=== PATIENT | male | born 1970 | race Caucasian/White ===

== ENCOUNTER 2017-05-06 20:13 | Emergency (ER) | payer MEDICARE ==
[2017-05-06] MEDS ORDERED: LORazepam INJ* 2 MG/ML 1 ML VIAL IV PUSH ONE ×2 (20:35→21:49)
[2017-05-06] MEDS ORDERED: NS 0.9% 1000 ML* 1,000 ML IV ONE (20:35)
[2017-05-06] MEDS ORDERED: diPHENhydraMINE IV* 50 MG/ML 1 ml VIAL (BENADRYL) IV ONE ×2 (21:15→21:49)
[2017-05-06] MEDS ORDERED: diPHENhydraMINE IV* 50 MG/ML 1 ml VIAL (BENADRYL) ONE (21:15)
[2017-05-06] MEDS ORDERED: HYDROmorphone INJ* 2 MG/ML CARPUJECT SYRINGE IV SLOW PU ONE (22:39)
[2017-05-06 23:07] VITALS: BP 132/81
--- NOTE | 2017-05-07 05:27 | ED ---
Jay Benton Tecjoon, scribed for Otf Amaya MD on 05/06/17 at 2040 . Complex/Multi-Sys Presentation - HPI Summary HPI Summary: This patient is a 46 year old male presenting to [facility] accompanied by family with a chief complaint of worsening Parkinsons symptoms since 3 days ago. At time of exam, patients extremities shake uncontrollably. Patient states that at the worst, his muscle stiffness can be as bad as a paralysis. The pain is rated 7/10 in severity. Symptoms aggravated by nothing. Symptoms alleviated by nothing. Patient denies coughing , congestion, rhinorrhea, urinary problems. Patient has a DBS. - History Of Current Complaint Chief Complaint: EDGeneral Hx Obtained From: Patient Onset/Duration: Gradual Onset, Lasting Days - 3, Still Present Timing: Constant, Intermittent, Lasting: Severity Currently: Moderate - 7/10 Aggravating Factor(s): Nothing Alleviating Factor(s): Nothing Associated Signs And Symptoms: Negative: Cough - Allergies/Home Medications Allergies/Adverse Reactions: Allergies Allergy/AdvReac Type Severity Reaction Status Date / Time No Known Allergies Allergy Verified 05/06/17 20:48 PMH/Surg Hx/FS Hx/Imm Hx Previously Healthy: Yes Endocrine/Hematology History: Denies: Hx Diabetes Cardiovascular History: Denies: Hx Hypertension, Hx Pacemaker/ICD History: Denies: Hx Renal Disease Sensory History: Denies: Hx Hearing Aid EENT History: Denies: Hx Deafness Psychiatric History: Reports: Hx Panic Disorder - ANXIETY ATTACKS PT HAS PARKINSONS - Surgical History Surgery Procedure, Year, and Place: APPENDIX AGE 13 Infectious Disease History: No Infectious Disease History: Denies: Traveled Outside the US in Last 30 Days - Family History Known Family History: Negative: Hypertension - Social History Lives: With Family Hx Substance Use: Yes Substance Use Type: Reports: Marijuana Hx Tobacco Use: Yes Smoking Status (MU): Former Smoker Review of Systems Negative: Fever ENT: Negative - nasal congestion Negative: Nasal Discharge Negative: Cough Genitourinary: Negative - "any urinary problems" Positive: Other - uncontrolled tremors in extremities All Other Systems Reviewed And Are Negative: Yes Physical Exam - Summary Physical Exam Summary: Appearance: Well appearing, no pain distress Skin: warm, dry, reflects adequate perfusion Head/face: normocephalic, flat faces Eyes: EOMI, BESS ENT: normal Neck: supple, non-tender Respiratory: CTA, breath sounds present Cardiovascular: RRR, pulses symmetrical Abdomen: non-tender, soft Bowel: present Musculoskeletal: uncontrolled tremors in extremities, worst at left arm Neuro: normal, sensory motor intact, A&Ox3 Triage Information Reviewed: Yes Vital Signs On Initial Exam: Initial Vitals Temp Pulse Resp BP Pulse Ox 98.3 F 103 16 132/100 100 05/06/17 20:23 05/06/17 20:23 05/06/17 20:23 05/06/17 20:23 05/06/17 20:23 Vital Signs Reviewed: Yes Diagnostics - Vital Signs Vital Signs Temp Pulse Resp BP Pulse Ox 05/06/17 20:23 98.3 F 103 16 132/100 100 - Laboratory Lab Statement: Any lab studies that have been ordered have been reviewed, and results considered in the medical decision making process. Re-Evaluation - Re-Evaluation First Eval Re-Evaluation Time: 21:50 Change: Improved Comment: Patient is improving, but there are still lingering tremors. Complex Multi-Symp Course/Dx Course Of Treatment: Pt with hx of Parkinson's without recent med changes. He has "flares" in his sx. He was hydrated here, tx with ativan and benadryl with relief. He was able to get up and walk about the ER. Patient was given a walker to assist with tremors and walking. He is due to have DBS placed in the coming weeks. - Diagnoses Provider Diagnoses: Parkinson's disease (tremor, stiffness, slow motion, unstable posture), Tremor , coarse Discharge - Discharge Plan Condition: Improved Disposition: HOME Patient Education Materials: Parkinson Disease (ED), Tremors (ED) Referrals: Sherron Orlando MD [Primary Care Provider] - Additional Instructions: Follow up with [facility] for your deep brain stimulator as discussed. Stay well hydrated and move about frequently. Benadryl may help. Return if worse, new symptoms or other concerns as discussed. Use walker provided when moving. The documentation as recorded by the Jay camejo Tecjoon accurately reflects the service I personally performed and the decisions made by me, Otf Amaya MD.
== END 2017-05-06 23:07 | disposition home or self-care (01) ==
LOC: ED 20:13
DX: G20 Parkinson's disease (principal); R25.1 Tremor, unspecified
CPT/HCPCS: 96374; 96375; 99283; J1170; J1200; J2060

== ENCOUNTER 2017-05-10 06:16 | Observation (INO) | payer MEDICARE ==
[2017-05-10] MEDS ORDERED: Nitroglycerin 2% OINT* 1 GM PAK TOPICAL ONE (06:40)
[2017-05-10 07:08] LABS: ABS Basophils 0 10^3/ul (0-0.2); ABS Eosinophils 0.4 10^3/ul (0-0.6); ABS Lymphocytes 1.9 10^3/ul (1.0-4.8); ABS Monocytes 0.6 10^3/ul (0-0.8); ABS Neutrophils 2.9 10^3/ul (1.5-7.7); ABS Nucleated RBC 0 10^3/ul; Hematocrit 46 % (42-52); Hemoglobin 15.5 g/dl (14.0-18.0); Mean Corpuscular HGB Conc 34 g/dl (31-36); Mean Corpuscular Hemoglobin 33 pg (27-31); Mean Corpuscular Volume 97 fL (80-94); Mean Platelet Volume 8 um3 (7.4-10.4); Nucleated Red Blood Cells % 0.1; Platelet Count 209 10^3/ul (150-450); Red Blood Count 4.78 10^6/ul (4.0-5.4); Red Cell Distribution Width 14 % (10.5-15); White Blood Count 5.8 10^3/ul (3.5-10.8)
[2017-05-10 07:20] LABS: EGFR Non-African American 92.8 (>60)
[2017-05-10] MEDS ORDERED: Morphine INJ* 4 MG/ML 1 ML CARPUJECT IV ONE ×2 (07:23→07:26)
[2017-05-10 07:40] LABS: INR 0.84 (0.77-1.02)
[2017-05-10] MEDS ORDERED: LORazepam INJ* 2 MG/ML 1 ML VIAL IV PUSH ONE (08:00)
[2017-05-10] MEDS ORDERED: LORazepam INJ* 2 MG/ML 1 ML VIAL ONE (08:02)
[2017-05-10] MEDS ORDERED: Iohexol 350* (CONTRAST) 500 ML MDV IV ONE (08:04)
--- NOTE | 2017-05-10 08:08 | RAD ---
INDICATION: Chest pain COMPARISON: Most raising comparison chest x-rays dated March 14, 2009 TECHNIQUE: Single AP portable view of the chest was obtained. FINDINGS: Image quality is compromised due to the relative inferiority of a portable chest x-ray. The heart and mediastinum exhibit normal size and contour. The lungs are grossly clear. There is no evidence of a large pleural effusion. Visualized bones are normal for the patient's age. IMPRESSION: No radiographic evidence for acute cardiopulmonary abnormality on this portable chest x-ray.
[2017-05-10] MEDS ORDERED: NS 0.9% 1000 ML* 1,000 ML IV ONE (08:19)
--- NOTE | 2017-05-10 08:46 | RAD ---
HISTORY: Chest pain COMPARISONS: None TECHNIQUE: Multiple contiguous axial CT scans of the chest were obtained after the administration of nonionic intravenous contrast, timed to the pulmonary arterial phase of contrast enhancement.. Coronal and sagittal multiplanar reformations are also submitted for review. FINDINGS: NECK AND THYROID: The lower neck and thyroid are unremarkable. CHEST WALL: There is no lower cervical, axillary, or supraclavicular lymphadenopathy by size criteria. HEART AND PERICARDIUM: The heart is unremarkable. AORTA AND PULMONARY VASCULATURE: There is no pulmonary arterial filling defect to suggest pulmonary embolism. There is no linear filling defect within the aorta to suggest aortic dissection. MEDIASTINUM: There is no mediastinal lymphadenopathy by size criteria. ROMAN: There is no hilar lymphadenopathy by size criteria. AIRWAY AND ESOPHAGUS: The airway is unremarkable, without endobronchial filling defect. The esophagus is grossly normal. LUNG PARENCHYMA: The lungs are clear. PLEURA: No pleural abnormalities are noted. UPPER ABDOMEN: The upper abdomen is unremarkable. BONES AND SOFT TISSUES: No bone or soft tissue abnormalities are noted. OTHER: None. IMPRESSION: NO PULMONARY ARTERIAL FILLING DEFECT TO SUGGEST PULMONARY EMBOLISM.
--- NOTE | 2017-05-10 11:40 | PN ---
"Progress Note - Progress Note Date of Service: 05/10/17 Note: This report was requested by: Nic Azar | Reference #: [id number] Others' Prescriptions Patient Name: Merritt Silver Date: 1970 Address: [address] [id number] Sex: Male Rx Written Rx Dispensed Drug Quantity Days Supply Prescriber Name 02/26/2017 03/06/2017 diazepam 5 mg tablet 90 30 Sherron Orlando MD 12/28/2016 12/29/2016 diazepam 5 mg tablet 90 30 Sherron Orlando MD Patient Name: Merritt Silver Date: 1970 Address: [address] [place] [id number] Sex: Male Rx Written Rx Dispensed Drug Quantity Days Supply Prescriber Name 07/26/2016 07/27/2016 diazepam 5 mg tablet 90 30 Sherron Orlando MD 05/16/2016 05/16/2016 clonazepam 1 mg tablet 60 30 Sherron Orlando MD"
--- NOTE | 2017-05-10 11:46 | CONSULT ---
Subjective Date of Service: 05/10/17 Interval History: The patient awoke in his usual state of health about 5 AM today, not unusual for him. He developed mid-sternal chest pain shortly after that, lasting 10-15 minutes. It then moved to his inter-scapular area where it remains. He never had anterior chest pain like this before, but has had the same inter-scapular pain for about a year. It is gradually getting worse. It typically starts in the evening and lasts all night. He "freezes" and cannot walk for about 12 hrs per day, but the other 12 hrs he can walk. He last saw Dr. Silver about 6 months ago. He is followed by a DBS specialist in [place]. Family History: Findings - unrmarkable. Social History: Findings - Lives with his mother who is his SDM. Quit smoking 2016. No alcohol abuse. Past Medical History: Findings - severe parkinson's disease Review of Systems - Measurements Intake and Output: Intake and Output Last 24 Hours 05/08/17 05/09/17 05/10/17 05/11/17 06:59 06:59 06:59 06:59 Weight 155 lb 155 lb - Review of Systems Constitutional Symptoms: Negative: Weight Gain, Weight Loss, Weakness, Fatigue, Fever, Night Sweats, Unexplained Falls, Other Dermatology: Positive: Normal HEENT: Positive: Normal Eyes: Positive: Normal Thyroid: Positive: Normal Pulmonary: Positive: Normal Cardiology: Positive: Chest Pain Gastroenterology: Positive: Normal Genital - Urinary: Positive: Normal Genitourinary - Male: Positive: Prostatism Musculoskeletal: Positive: Low Back Pain, Other - inter-scapular pain Endocrinology: Positive: Normal Neurology: Positive: Other - Parkinsons Psychiatry: Positive: Normal Allergic/Immunologic: Negative: Hx Anaphylaxis, Hx Angioedema, Hx Environmental, Hx Seasonal, Athsma, Hx HIV, Immunocompromise, Swollen Glands LymphNodes, Other Objective Vital Signs - 8 hr 05/10/17 05/10/17 05/10/17 06:19 06:26 06:46 Temperature 98.1 F Pulse Rate 80 81 74 Respiratory 18 16 16 Rate Blood Pressure 150/83 (mmHg) O2 Sat by Pulse 98 98 98 Oximetry 05/10/17 05/10/17 05/10/17 07:00 07:30 08:00 Temperature Pulse Rate 79 79 95 Respiratory 13 14 14 Rate Blood Pressure 118/83 125/53 128/85 (mmHg) O2 Sat by Pulse 96 97 97 Oximetry 05/10/17 05/10/17 08:03 09:00 Temperature Pulse Rate 87 Respiratory 20 11 Rate Blood Pressure 100/52 (mmHg) O2 Sat by Pulse 98 Oximetry Oxygen Devices in Use Now: None Appearance: Alert, partly up in bed. Neutral affect. Marked tremor/athetoid movements. Eyes: No Scleral Icterus Neck: NL Appearance and Movements; NL JVP, No Thyroid Enlargement, Masses Respiratory: Symmetrical Chest Expansion and Respiratory Effort, Clear to Auscultation, Clear to Percussion, - - mild sternal tenderness. Extremities: No Edema, No Clubbing, Cyanosis, - Skin: No Rash or Ulcers, No Nodules or Sclerosis, - Neurological: Alert and Oriented x 3, NL Sensation - marked tremor/athetoid movements all limbs and head. Result Diagrams: 05/10/17 06:26 05/10/17 06:26 Assessment/Plan - Billing Plan By Medical Problem: 1. Chest pain. Nuclear/chemical stress test ordered. Tele. 2. Parkinson's. I discussed the patient with Dr. Silver.
[2017-05-10] MEDS: oxyCODONE TAB* 5 MG TAB PO PRN ×3 (12:53→21:27)
[2017-05-10] MEDS ORDERED: Naproxen TAB* 250 MG PO PRN (15:16)
[2017-05-10] MEDS ORDERED: clonazePAM TAB(*) 0.5 MG PO PRN (15:16)
[2017-05-10] MEDS ORDERED: Regadenoson* 0.4 MG/5 ML SYRINGE ONE (16:28)
[2017-05-10] MEDS ORDERED: Aminophylline IV* 25 MG/ML 10 ML VIAL ONE (16:29)
[2017-05-10] MEDS: Carbidopa/Levodop 25/100 MG TAB(*) PO SCH (18:17)
--- NOTE | 2017-05-10 18:26 | ED ---
Eric Benton Angela, scribed for Yonis Strickland MD on 05/10/17 at 0730 . HPI Chest Pain - HPI Summary HPI Summary: This pt is a 46 y/o male presenting to [facility] via EMS c/o chest pain radiating to his back since approximately 04:00 today. Pt has hx of Parkinson's and has chronic pain. Pt has been in worsening pain since 4 days ago. His chest pain is described as sharp and heavy. Pt additionally reports nausea and dizziness. He denies vomiting, fever, SOB. Pt saw his PCP yesterday but was not given any pain medications. Pt's PCP is Dr. Orlando and his neurologist is Dr. Silver. Pt received 324 mg of aspirin, 1 nitroglycerin, and 4 mg of Zofran [employer]S RECYCLER. - History of Current Complaint Chief Complaint: EDChestPainROMI Hx Obtained From: Patient Onset/Duration: Started Hours Ago, Still Present Timing: Lasting Hours Current Severity: Severe Pain Intensity: 8 Pain Scale Used: 0-10 Numeric Chest Pain Location: Diffuse Chest Pain Radiates: Yes Chest Pain Radiates To:: Back Character: Heaviness, Sharp/Stabbing - sharp Aggravating Factor(s): Nothing Alleviating Factor(s): Nothing Associated Signs and Symptoms: Positive: Chest Pain, Dizziness, Nausea. Negative: Shortness of Breath, Fever, Vomiting - Allergy/Home Medications Allergies/Adverse Reactions: Allergies Allergy/AdvReac Type Severity Reaction Status Date / Time No Known Allergies Allergy Verified 05/06/17 20:48 Home Medications: Home Medications Amantadine HCl 100 mg PO BID 05/10/17 [History Confirmed 05/10/17] Carbidopa/Levodop 25/100 MG(*) [Sinemet 25/100 TAB(*)] 1.5 tab PO 0700,1000,1300 ,1600 05/10/17 [History Confirmed 05/10/17] Cholecalciferol TAB* [Vitamin D TAB*] 2,000 units PO DAILY 05/10/17 [History Confirmed 05/10/17] Diazepam TAB(*) [Valium TAB(*)] 5 mg PO TID PRN 05/10/17 [History Confirmed ] Naproxen TAB* [Naprosyn 250 mg TAB*] 500 mg PO BID PRN 05/10/17 [History Confirmed 05/10/17] Kbbzy-5-Kvbr Ethyl Esters (NF) [Lovaza (NF)] 2 cap PO BID 05/10/17 [History Confirmed 05/10/17] Sertraline* [Zoloft*] 50 mg PO DAILY 05/10/17 [History Confirmed 05/10/17] clonazePAM TAB(*) [KlonoPIN TAB(*)] 0.5 mg PO BID PRN 05/10/17 [History Confirmed 05/10/17] PMH/Surg Hx/FS Hx/Imm Hx Endocrine/Hematology History: Denies: Hx Diabetes Cardiovascular History: Denies: Hx Hypertension, Hx Pacemaker/ICD History: Denies: Hx Renal Disease Sensory History: Denies: Hx Deafness, Hx Hearing Aid Neurological History: Reports: Other Neuro Impairments/Disorders - Parkinson's disease Psychiatric History: Reports: Hx Panic Disorder - ANXIETY ATTACKS PT HAS PARKINSONS - Surgical History Surgery Procedure, Year, and Place: APPENDIX AGE 13 - Immunization History Date of Tetanus Vaccine: utd Date of Influenza Vaccine: none Infectious Disease History: No Infectious Disease History: Denies: Traveled Outside the US in Last 30 Days - Family History Known Family History: Negative: Hypertension - Social History Alcohol Use: Rare Hx Substance Use: Yes Substance Use Type: Reports: Marijuana Substance Use Comment - Amount & Last Used: daily Hx Tobacco Use: Yes Smoking Status (MU): Former Smoker Review of Systems Negative: Fever, Chills Positive: Chest Pain Negative: Shortness Of Breath Positive: Nausea. Negative: Vomiting Neurological: Other - POS: dizziness All Other Systems Reviewed And Are Negative: Yes Physical Exam - Summary Physical Exam Summary: VITAL SIGNS: Reviewed. GENERAL: Patient is a well-developed and nourished male. Patient is not in any acute respiratory distress. Pt has continuous involuntary tremors. HEAD AND FACE: No signs of trauma. No ecchymosis, hematomas or skull depressions. No sinus tenderness. EYES: PERRLA, EOMI x 2, No injected conjunctiva, no nystagmus. EARS: Hearing grossly intact. Ear canals and tympanic membranes are within normal limits. MOUTH: Oropharynx within normal limits. NECK: Supple, trachea is midline, no adenopathy, no JVD, no carotid bruit, no c- spine tenderness, neck with full ROM. CHEST: Symmetric, no tenderness at palpation LUNGS: Clear to auscultation bilaterally. No wheezing or crackles. CVS: Regular rate and rhythm, S1 and S2 present, no murmurs or gallops appreciated. ABDOMEN: Soft, non-tender. No signs of distention. No rebound no guarding, and no masses palpated. Bowel sounds are normal. EXTREMITIES: FROM in all major joints, no edema, no cyanosis or clubbing. NEURO: Alert and oriented x 3. Speech is normal and follows commands. Pt has continuous involuntary tremors and dyskinesia. SKIN: Dry and warm Triage Information Reviewed: Yes Vital Signs On Initial Exam: Initial Vitals Temp Pulse Resp BP Pulse Ox 98.1 F 80 18 150/83 98 05/10/17 06:19 05/10/17 06:19 05/10/17 06:19 05/10/17 06:19 05/10/17 06:19 Vital Signs Reviewed: Yes Diagnostics - Vital Signs Vital Signs Temp Pulse Resp BP Pulse Ox 05/10/17 06:19 98.1 F 80 18 150/83 98 - Laboratory Lab Results: Lab Results 05/10/17 05/10/17 Range/Units 06:26 06:26 WBC 5.8 (3.5-10.8) 10^3/ul RBC 4.78 (4.0-5.4) 10^6/ul Hgb 15.5 (14.0-18.0) g/dl Hct 46 (42-52) % MCV 97 H (80-94) fL MCH 33 H (27-31) pg MCHC 34 (31-36) g/dl RDW 14 (10.5-15) % Plt Count 209 (150-450) 10^3/ul MPV 8 (7.4-10.4) um3 Neut % (Auto) 49.0 (38-83) % Lymph % (Auto) 33.0 (25-47) % [place] % (Auto) 10.4 H (1-9) % Eos % (Auto) 7.0 H (0-6) % Baso % (Auto) 0.6 (0-2) % Absolute Neuts (auto) 2.9 (1.5-7.7) 10^3/ul Absolute Lymphs (auto) 1.9 (1.0-4.8) 10^3/ul Absolute Monos (auto) 0.6 (0-0.8) 10^3/ul Absolute Eos (auto) 0.4 (0-0.6) 10^3/ul Absolute Basos (auto) 0 (0-0.2) 10^3/ul Absolute Nucleated RBC 0 10^3/ul Nucleated RBC % 0.1 Sodium 139 (133-145) mmol/L Potassium 4.1 (3.5-5.0) mmol/L Chloride 104 (101-111) mmol/L Carbon Dioxide 29 (22-32) mmol/L Anion Gap 6 (2-11) mmol/L BUN 13 (6-24) mg/dL Creatinine 0.88 (0.67-1.17) mg/dL Est GFR ( Amer) 119.4 (>60) Est GFR (Non-Af Amer) 92.8 (>60) BUN/Creatinine Ratio 14.8 (8-20) Glucose 107 H (70-100) mg/dL Calcium 9.2 (8.6-10.3) mg/dL Magnesium 1.9 (1.9-2.7) mg/dL Total Bilirubin 0.70 (0.2-1.0) mg/dL AST 25 (13-39) U/L ALT 27 (7-52) U/L Alkaline Phosphatase 81 (34-104) U/L Total Creatine Kinase 67 (10-223) U/L Troponin I 0.01 (<0.04) ng/mL Total Protein 6.9 (6.4-8.9) g/dL Albumin 4.2 (3.2-5.2) g/dL Globulin 2.7 (2-4) g/dL Albumin/Globulin Ratio 1.6 (1-3) Result Diagrams: 05/10/17 06:26 05/10/17 06:26 Lab Statement: Any lab studies that have been ordered have been reviewed, and results considered in the medical decision making process. - Radiology Chest XR Xray Interpretation: No Acute Changes - IMPRESSION: No radiographic evidence for acute cardiopulmonary abnormality on this portable chest x-ray. Dr. Strickland has reviewed this radiology report. Radiology Interpretation Completed By: Radiologist - CT Chest CTA CT Interpretation: No Acute Changes - IMPRESSION: No pulmonary arterial filling defect to suggest pulmonary embolism. Dr. Strickland has reviewed this radiology report. CT Interpretation Completed By: Radiologist - EKG 10:12 Cardiac Rate: NL EKG Rhythm: Sinus Rhythm - at 67 bpm EKG Interpretation: No ST elevation Chest Pain Course/Dx - Course Course Of Treatment: This pt is a 46 y/o male presenting to [facility] via EMS c/o chest pain radiating to his back since approximately 04:00 today. Pt has hx of Parkinson's and has chronic pain. Pt has been in worsening pain since 4 days ago. His chest pain is described as sharp and heavy. Pt additionally reports nausea and dizziness. He denies vomiting, fever, SOB. Pt saw his PCP yesterday but was not given any pain medications. Pt's PCP is Dr. Orlando and his neurologist is Dr. Silver. Pt received 324 mg of aspirin, 1 nitroglycerin, and 4 mg of Zofran [employer]S [employer]YCLER. Test results without any significant abnormalities. Before I saw the pt, the pt was given nitroglycerin and aspirin by Dr. Yusuf, the previous ED attending, right before change of shift. The pt continues to have severe dyskinesia and chest pain, for which he was given morphine and Ativan. The pt feels slightly better. I discussed the pts case with Dr. Silver , neurologist, she reports the pt has severe dyskinesia however we should admit the pt to rule out acute coronary syndrome. I discussed the case with Dr. Azar , hospitalist, who accepts the pt for admission. Pt is hemodynamically stable, alert and oriented x3. - Chest Pain Differential Diagnosis/HQI/PQRI: Acute WI, ACS, Angina, CHF, Chest Wall, GI Disease - Diagnoses Provider Diagnoses: Chest pain, rule out ACS, Parkinson's disease, Severe dyskinesia - Provider Notifications Discussed Care Of Patient With: Eaw Silver Time Discussed With Above Provider: 09:49 Instructed by Provider To: Other - I discusssed pt care with Dr. Silver, neurologist, who recommends pt to be admitted to the hospitalist. She reports the pt has chronic dyskinesia. [09:55] I spoke with Dr. Azar, hospitalist, who has agreed to admit thept. Discharge - Discharge Plan Condition: Stable Disposition: ADMITTED TO [facility] The documentation as recorded by the Eric camejo Angela accurately reflects the service I personally performed and the decisions made by me, Yonis Strickland MD.
[2017-05-10] MEDS: Amantadine CAP* 100 MG PO SCH (21:19)
[2017-05-10] MEDS ORDERED: Ondansetron INJ* 2 MG/ML VIAL IV PRN (22:01)
[2017-05-10] MEDS: Carbidopa/Levodop 25/100 MG TAB(*) PO PRN (22:13)
[2017-05-10] MEDS: Diazepam TAB(*) 5 MG PO PRN (22:13)
[2017-05-11] MEDS: oxyCODONE TAB* 5 MG TAB PO PRN ×2 (04:01→08:51)
[2017-05-11] MEDS: Carbidopa/Levodop 25/100 MG TAB(*) PO PRN (04:02)
[2017-05-11] MEDS: Amantadine CAP* 100 MG PO SCH (07:13)
[2017-05-11] MEDS: Carbidopa/Levodop 25/100 MG TAB(*) PO SCH ×2 (07:13→10:25)
[2017-05-11] MEDS: Diazepam TAB(*) 5 MG PO PRN (07:22)
--- NOTE | 2017-05-11 08:47 | RAD ---
INDICATION: Chest pain COMPARISON: None TECHNIQUE: Rest images were acquired following the intravenous injection of 25.4 millicuries of technetium 99m tetrofosmin. Oncologic stress images were acquired following the intravenous administration of 25.3 millicuries of technetium 99m tetrofosmin. FINDINGS: There are no defects of the stress-induced or fixed nature. The cardiac chamber size is normal. There are no wall motion abnormalities. The ejection fraction is calculated at 66 percent during rest and 62 during stress. IMPRESSION: NO DEFECTS OF THE STRESS-INDUCED OR FIXED NATURE ASSESSMENT: LOW-RISK Based on imaging criteria from ACC/AHA 2002 Guideline Update for the Management of Patients With Chronic Stable Angina Table 23. Noninvasive Risk Stratification.
[2017-05-11] MEDS ORDERED: Sertraline* 50 MG TAB PO SCH (09:00)
[2017-05-11] MEDS ORDERED: Cholecalciferol TAB* 1000 UNITS PO SCH (09:00)
--- NOTE | 2017-05-11 11:10 | DS ---
CC: Dr. Silver; Dr. Orlando * DATE OF ADMISSION: 05/10/2017. DATE OF DISCHARGE: 05/12/2017. HISTORY OF PRESENT ILLNESS: This 46-year-old man presented with chest pain. It developed some time after he woke up in the morning on the day of admission. It lasted about 10 to 15 minutes. It moved to his back and into his intrascapular area. He has had pain there for about a year which has been getting progressively worse. Most likely this is related to his severe Parkinson's disease. He has a lot of athetoid movements. He may have pulled something. I spoke to Dr. Silver on the phone about the patient. He is currently being followed by the [facility] in [place] and has an appointment there on May 29 for an MRI and May 30 for further evaluation for deep brain stimulation. The patient was admitted to our Telemetry Unit. He had a stress test which showed no fixed or reversible areas of ischemia. His ejection fraction was calculated at 66 percent during rest and 62 percent during stress. Two troponin levels were within normal limits. The patient was in his usual state of health at the time of discharge. I did phone in a prescription for 30 Oxycodone tablets, 5 mg each, to take one or two every four hours as needed. I emphasized to him the side effects and limitations of opiate therapy, including tolerance and addiction properties, as well as side effects. I emphasized he should use this sparingly. Otherwise no changes were made in his medications. FINAL DIAGNOSES: 1. Chest pain, likely musculoskeletal. 2. Parkinson's disease. DISCHARGE MEDICATIONS: 1. Oxycodone 5 mg every 3 hours prn. 2. Carbidopa Levodopa 25/100 [id number] every 4 hours prn, plus 1-1/2 tablets 7:10 a.m., 1:00 p.m., 4:00 p.m. 3. Amantadine 100 mg b.i.d. 4. Diazepam 5 mg t.i.d. prn. 5. Clonazepam 0.5 mg b.i.d. prn. 6. Vitamin D3 2,000 units daily. [id number]/[facility] #: [id number] [facility]
[2017-05-11 11:40] VITALS: BP 130/79
== END 2017-05-11 11:59 | disposition home or self-care (01) ==
LOC: ED 06:16 → MEDTELE 12:22
PROVIDERS: ADMIT Internal Medicine; ATTEND Internal Medicine
DX: R07.9 Chest pain, unspecified (principal); G20 Parkinson's disease; R11.0 Nausea; R42 Dizziness and giddiness; G24.9 Dystonia, unspecified; Z87.891 Personal history of nicotine dependence
CPT/HCPCS: 36415; 71045; 71275; 78452; 80053; 82550; 83735; 83880; 84484; 85025; 85610; 85730; 93005; 93017; 96374; 96375; 99285; A9270-GY; A9502; G0378; J0280; J2060; J2270; J2405; J2785; Q9967

== ENCOUNTER 2018-07-28 16:58 | Emergency (ER) | payer MEDICARE ==
--- NOTE | 2018-07-28 17:16 | ED ---
HPI Chest Pain - HPI Summary HPI Summary: This patient is a 47 year old M presenting to [facility] accompanied by his sister with a chief complaint of constant sudden mid-sternal chest pain beginning 3 hours ago that started as pressure and anxiety that became sharp recently with SOB and radiation into the jaw. Reports chills and sweats today. Sister reports issues with staying warm for the past few days. Patient vomited on and 07/24/18. Pain is rated 8/10 in severity. Experienced previous chest pain last fall, was seen at [facility] and was admitted; does not recall a stress test was performed. Reports chronic back pain. Denies fever, cough, urinary symptoms, rash, LE swelling/pain. Denies cardiac hx. PMHx of anxiety and Parkinsons with recent worsening in tremors. Patient reports recent neurologic symptoms with deep brain stimulator including inability to sleep with racing thoughts. FMHx of angina. Vital signs while in room: HR 83 bpm, BP 154/95, O2 sat 96 % Regular medications are unclear as multiple meds brought in have been discontinued. Patient is unsure as to what time he has taken medications today and which medication in his med bag are still being taken on a regular basis. Per sister patient was in [place] used all of clonazepam before due date. Eliel Miranda ([facility]) gave emergency dose which he does not have in his med bag. 07/22/18 while playing football was having SOB and saw error message on stimulator that was then adjusted on 07/26/18. - History of Current Complaint Hx Obtained From: Patient, Family/[employer]her Onset/Duration: Started Hours Ago Timing: Constant Pain Intensity: 8 Pain Scale Used: 0-10 Numeric Chest Pain Location: Mid Sternal Chest Pain Radiates: Yes Chest Pain Radiates To:: Jaw Character: Pressure/Squeezing, Sharp/Stabbing Aggravating Factor(s): Nothing Alleviating Factor(s): Nothing Associated Signs and Symptoms: Positive: Chest Pain, Anxiety, Shortness of Breath. Negative: Fever, Cough, Calf Pain/Swelling - Allergy/Home Medications Allergies/Adverse Reactions: Allergies Allergy/AdvReac Type Severity Reaction Status Date / Time No Known Allergies Allergy Verified 05/06/17 20:48 Home Medications: Home Medications Carbidopa/Levodop CR 50/200(*) [Sinemet CR 50/200(*)] 1 tab.cr PO TID 07/28/18 [ History Confirmed 07/28/18] Ondansetron ODT TAB* [Zofran 4 MG Odt TAB*] 4 mg PO Q8H PRN 07/28/18 [History Confirmed 07/28/18] PARoxetine HCL TAB* [Paxil TAB*] 10 mg PO DAILY 07/28/18 [History Confirmed ] PMH/Surg Hx/FS Hx/Imm Hx Endocrine/Hematology History: Denies: Hx Diabetes Cardiovascular History: Reports: Hx Angina Denies: Hx Hypertension, Hx Pacemaker/ICD History: Denies: Hx Renal Disease Sensory History: Reports: Hx Contacts or Glasses - Reading glasses not with patient at this time Denies: Hx Deafness, Hx Hearing Aid Opthamlomology History: Reports: Hx Contacts or Glasses - Reading glasses not with patient at this time Neurological History: Reports: Hx Migraine - has MRI scheduled for [facility] in [place], Other Neuro Impairments/Disorders - Parkinson's disease Psychiatric History: Reports: Hx Panic Disorder - ANXIETY ATTACKS PT HAS PARKINSONS - Surgical History Surgery Procedure, Year, and Place: APPENDIX AGE 13. 07/10/17 - [facility] - DEEP BRAIN STIMULATOR - IS NOT MRI CONDITIONAL - SO PT IS NOT ABLE TO HAVE MRIs- HIS INFORMATION FROM [facility] STATES IT CAN OVER HEAT AND HIS REMOTE DOES NOT HAVE A MRI SETTING - Immunization History Date of Tetanus Vaccine: utd Date of Influenza Vaccine: none - Family History Known Family History: Positive: Cardiac Disease - angina Negative: Hypertension - Social History Alcohol Use: Rare Hx Substance Use: Yes Substance Use Type: Reports: Marijuana Substance Use Comment - Amount & Last Used: daily Hx Tobacco Use: Yes Smoking Status (MU): Former Smoker Review of Systems Negative: Fever, Chills Positive: Chest Pain Positive: Shortness Of Breath. Negative: Cough Positive: Vomiting Positive: no symptoms reported Positive: Myalgia. Negative: Edema Negative: Rash Positive: Anxious All Other Systems Reviewed And Are Negative: Yes Physical Exam - Summary Physical Exam Summary: Appearance: Ill-appearing, moderate pain distress, well-nourished Skin: Warm, color reflects adequate perfusion, dry Head: Normal Head/Face inspection, atraumatic Eyes: Conjunctiva clear ENT: Normal inspection Neck: Supple, no nodes, no JVD Respiratory: Lungs clear, normal breath sounds, no respiratory distress Cardio: RRR, No murmur, pulses normal, brisk capillary refill Abdomen: Soft, nontender Bowel sounds: Present Musculoskeletal: Strength Intact/ROM intact, no calf tenderness, no edema. Psychological: Normal Neuro: Alert, muscle tone normal, no focal deficit Triage Information Reviewed: Yes Vital Signs Reviewed: Yes Diagnostics - Laboratory Result Diagrams: 07/28/18 17:20 07/28/18 17:20 Lab Statement: Any lab studies that have been ordered have been reviewed, and results considered in the medical decision making process. - Radiology CXR Radiology Interpretation Completed By: Radiologist Summary of Radiographic Findings: NO ACTIVE CARDIOPULMONARY DISEASE IS NOTED. ED Physician has reviewed this report. - EKG 1704 Cardiac Rate: NL - 79 BPM EKG Rhythm: Sinus Rhythm Summary of EKG Findings: reveals nml AV/IV CT, nml QTc, and nml axis. No acute changes. Re-Evaluation - Re-Evaluation 1 Re-Evaluation Time: 19:17 Comment: Discussed disposition with patient while Dr. Silver was in room. 2 Re-Evaluation Time: 21:50 Chest Pain Course/Dx - Course Course Of Treatment: 47 year old M presenting to [facility] accompanied by his sister with constant sudden mid-sternal chest pain beginning 3 hours ago that started as pressure and anxiety that became sharp recently with SOB and radiation into the jaw. Regular medications are unclear as multiple meds brought in have been discontinued. Bloodwork reveals MCV 97, MCH 33, ALT 3, myoglobin 15.2. UA reveals trace ketones. Patient is unsure as to what time he has taken medications today and which medication in his med bag are still being taken on a regular basis. Per sister patient was in [place] used all of clonazepam before due date. Eliel Miranda ([facility]) gave emergency dose which he does not have in his med bag. 07/22/18 while playing football was having SOB and saw error message on stimulator that was then adjusted on 07/26/18. CXR reveals no active cardiopulmonary disease. Case discussed with Dr. Silver, neurology, at 1833 who recommends admission by hospitalist. After discussion with hospitalist and Dr. Ramirez, patient will be discharged home and will be given mental health resources and has a follow up appointment with Dr. Bowser on . Discharge - Sign-Out/Discharge Documenting (check all that apply): Patient Departure - Discharge Plan Patient Education Materials: Chest Pain (ED), Parkinson Disease (ED) Referrals: Murali Bowser MD [Medical Doctor] - 2 Days (as scheduled ) Sherron Orlando MD [Primary Care Provider] - 3 Days Additional Instructions: Return to the ER if any new or worsening symptoms. - Attestation Statements Document Initiated by Scribe: Yes Documenting Scribe: Opal Beatty Provider For Whom Scribe is Documenting (Include Credential): Lisbet Maynard MD Scribe Attestation: Opal Benton, scribed for Lisbet Maynard MD on 07/28/18 at [id number]. Status of Scribe Document: Ready
[2018-07-28 17:31] LABS: ABS Basophils 0 10^3/ul (0-0.2); ABS Eosinophils 0.2 10^3/ul (0-0.6); ABS Lymphocytes 1.6 10^3/ul (1.0-4.8); ABS Monocytes 0.3 10^3/ul (0-0.8); ABS Neutrophils 3.4 10^3/ul (1.5-7.7); ABS Nucleated RBC 0 10^3/ul; Eosinophil % 3.5 %; Hematocrit 44 % (36-46); Hemoglobin 14.7 g/dL (14.0-18.0); Mean Corpuscular HGB Conc 34 g/dL (31-36); Mean Corpuscular Hemoglobin 33 pg (27-31); Mean Corpuscular Volume 97 fL (80-94); Mean Platelet Volume 7.9 fL (7.4-10.4); Nucleated Red Blood Cells % 0.1; Platelet Count 214 10^3/uL (150-450); Red Blood Count 4.52 10^6 /uL (4.18-5.48); Red Cell Distribution Width 14 % (10.5-15); White Blood Count 5.6 10^3/uL (3.5-10.8)
[2018-07-28 17:39] LABS: INR 0.87 (0.77-1.02)
[2018-07-28 17:48] LABS: Albumin/Globulin Ratio 1.5 (1-3); Calcium 8.7 mg/dL (8.6-10.3); EGFR African American 96.5 (>60); EGFR Non-African American 79.8 (>60); Globulin 2.6 g/dL (2-4); Magnesium 2.1 mg/dL (1.9-2.7); Potassium 3.8 mmol/L (3.5-5.0); Total Bilirubin 0.4 mg/dL (0.2-1.0); Total Protein 6.6 g/dL (6.4-8.9)
[2018-07-28 17:52] LABS: Myoglobin 15.2 ng/mL (17.4-105.7)
[2018-07-28 17:53] LABS: CKMB ng/mL 1.1 ng/mL (0.6-6.3)
[2018-07-28 18:29] LABS: TSH (Thyroid Stimulating Horm) 0.79 mcIU/mL (0.34-5.60)
[2018-07-28 18:31] LABS: Free T3 3.6 pg/mL (2.5-3.9)
[2018-07-28 18:31] LABS: Urine Appearance Clear; Urine Bilirubin Negative (Negative); Urine Blood Negative (Negative); Urine Color Yellow; Urine Glucose Negative (Negative); Urine Ketones Trace (Negative); Urine Nitrite Negative (Negative); Urine Protein Negative (Negative); Urine Urobilinogen Negative (Negative)
[2018-07-28 22:21] VITALS: BP 112/76
--- NOTE | 2018-07-29 04:10 | CONS ---
CC: Dr. Perfecto Bowser; Dr. Javid Wyman, [facility] Neurosurgery NEUROLOGY CONSULTATION REPORT: DATE OF CONSULT: 07/28/18 REASON FOR CONSULT: Anxiety and Parkinson's disease, presenting with chest pain , palpitations, and shortness of breath. HISTORY OF PRESENT ILLNESS: Mr. Silver is a 47-year-old gentleman with a history of Parkinson's disease, anxiety, back pain who had a deep brain stimulator placed on July 2017, who now presents with increased anxiety, chest pain, palpitation, and shortness of breath. Mr. Silver was originally diagnosed with Parkinson's disease in his early 30s ; however, symptoms date back to mid 20s. He has been managed both here in [place] as well as at [facility] and has been on many medications including carbidopa/levodopa, amantadine, selegiline, Azilect, Requip, and even Coenzyme Q10 supplementation. Eventually, he could not be controlled by medical management and was having difficulty with dyskinesias, freezing, resulting in consultation in [place] for deep brain stimulation. With deep brain stimulation, there has been marked improvement in his quality of life and he has been able to reduce his carbidopa/levodopa and come off of amantadine. His dyskinesias have pretty much resolved and his tremor is much better. 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 Unfortunately, his back pain and spasms were too much, and triggered by doing this work. He became homeless and came back to [place] and had seen Dr. Bowser in his office a couple of times. Anxiety was noted to be a significant issue along with low back pain. He was started on paroxetine 10 mg once a day on 07/19/18. On of this week, he had adjustment to his deep brain stimulator. With this adjustment, he feels as if he cannot turn his brain off, and he has been up through the night. He has been doing ++ work around his sister's house. He also was noted at his last visit to run out of his clonazepam early. He was trying to take clonazepam at a different time than his carbidopa/levodopa and admits that sometimes he takes too many. He does not use a pill box. He has insight into anxiety and depression. He, at this point, has felt jobless , homeless, and decreased self-worth. He now is living with his sister, which has been helpful and he is starting to look for work and had a positive response recently, which has been a good experience. PAST MEDICAL HISTORY: Includes Parkinson's disease, anxiety, mood swings starting at an early age, with panic attack and counseling when he was young, history of muscle spasms in his neck, head, and back resulting in significant pain and headaches and in the past requiring medications, including benzodiazepines, baclofen for a period of time, and worked with chiropractic work, massage, and physical therapy. He has a history of appendectomy, colon surgery, and most recently deep brain stimulation with lead placement in July [address] Wyman at [facility]. FAMILY HISTORY: The chart did reveal a sister with Parkinson's disease; this was not confirmed on today's visit. SOCIAL HISTORY: The patient is currently living with his sister. He is not working, as noted above. REVIEW OF SYSTEMS: There has been no change in vision. No numbness or weakness of arms or legs. He can get off balance at times. He feels his dyskinesias are resolved. There has been no change in bowel or bladder habits. His appetite has been okay. There has been particular difficulties with insomnia. He does drink about 3 cups of coffee in the morning. He has stopped drinking caffeinated beverage, such as soda, throughout the day. PHYSICAL EXAM: On examination, his most recent blood pressure was 128/79, his pulse was 70, his respiratory rate was 19, his saturation was 96% on room air, and his temperature was 99.3 degrees Fahrenheit. He had a regular cardiac rhythm. His lungs were clear to auscultation. There is no evidence of peripheral edema. His peripheral pulses are intact. He is awake, alert, articulate. He has normal language function, adequate fund of knowledge. Slight hypophonia was noted. There are slight dyskinetic movements around his head and neck at times. He has full extraocular movements with no nystagmus, full parks to confrontation. His facial expression was symmetric, but slightly diminished. His palate was upgoing. Tongue was midline. Sternocleidomastoid and trapezius were 5/5 in strength. His fundi were flat. He had full parks to confrontation. There was normal bulk and tone. No pronator drift. He gave good strength in his upper and lower extremities with good [id number] and [id number] movements and good rapid alternating movements. As I came in the room, he was wearing off from his extended-release carbidopa/levodopa and was due for his next dose, which was at 7 o'clock in the evening. Tremor was noted at rest in mainly the left upper extremity and this resolved during the visit. When he walked, he had good excursion of his arms and legs and turned with a pivot. DIAGNOSTIC STUDIES/LAB DATA: Includes troponin, which was 0. TSH was 0.79, free T3 and total T3 were normal. His urinalysis was negative and his chest x- ray showed no active cardiopulmonary disease. IMPRESSION: A 47-year-old gentleman with a history of early onset Parkinson's disease, anxiety, back pain, and muscle spasms, deep brain stimulation now with increased anxiety, chest pain, palpitation, and shortness of breath. No cardiac pathology has been seen, and he is much more relaxed after going through consult and discussion on how we can best improve his symptoms. We went through his medications at length, the reasons why they are used, potential side effects, potential benefit. At this point, we will change his clonazepam to 1 mg 3 times a day with steady dosing. He is on paroxetine, which was started on 07/19/18 and will take time to be able to be effective. When that is effective, hopefully, clonazepam can start to be tapered. Certainly, the wearing off of dopamine may add into his anxiety, and the anxiety may add into his increased tremor. I would suggest outpatient referral to [facility] or [facility] where therapy, treatment of anxiety and depression, and potential resources for support. He does need a pill box for regular dosing. It can be difficult with Parkinson' s disease, as one feels some wearing off then anxiety may kick in. Medications that are not taken in the regular, steady manner that is needed can further add to the problem. I have also asked that he start cutting back his morning caffeine as this may be adding to anxiety and palpitations We also talked about stress reduction and benefits of activities such as meditation, yoga, exercise. His sister is at the bedside and is extremely supportive. He now has a place that he can live in and he is working on work. He is getting a CT for his back on Monday. He is a good candidate for physical therapy for his back as well as Parkinson's disease. He is to see Dr. Bowser on Monday afternoon to address his deep brain stimulation , as he feels that the adjustment has caused him to have his mind race. Differential diagnosis is anxiety and education was given. He has agreed, during today's visit, to referral to mental health and [facility] or [facility] may be very helpful. In addition, he was very interested in physical therapy. TIME SPENT: Over 90 minutes were spent in direct [id number] patient care, with 50% of that time was spent in education and counseling regarding above issues. All questions were answered. [id number]/[facility] #: [id number] EDER
== END 2018-07-28 22:10 | disposition home or self-care (01) ==
LOC: ED 16:58
DX: R07.9 Chest pain, unspecified (principal); R06.02 Shortness of breath; F41.9 Anxiety disorder, unspecified; Z87.891 Personal history of nicotine dependence; R11.10 Vomiting, unspecified
CPT/HCPCS: 36415; 71045; 80053; 81003; 82550; 82553; 83605; 83735; 83874; 83880; 84443; 84479; 84481; 84484; 85025; 85379; 85610; 93005; 99283

== ENCOUNTER 2019-01-21 14:21 | Observation (INO) | payer MEDICARE ==
--- OUTSIDE RECORDS SUMMARY | 2019-01-21 15:38 | XMS REPORT | Continuity of Care Document ---
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 Onset: 2014 Note: with early onset, dystonia, significant fluctuations and dyskinesias early in course Migraine Ewa Silver M.D. Onset: 2014 Low back pain Ewa Silver M.D. 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 Onset: 01/04/2018 Lumbar radiculopathy Perfecto Bowser M.D. Onset: 03/05/2018 Anxiety state Perfecto Bowser M.D. 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 Onset: 2018 lumbar intervertebral disc Social History Type Date Description Comments Sex Unknown ETOH Use Rarely consumes alcohol Tobacco Use Start: Unknown Patient is a current smoker, smokes every day Recreational Drug Use Denies Drug Use Tobacco Use Start: Unknown Light tobacco smoker (10 or fewer cigarettes/day) Smoking Status Reviewed: 12/26/18 Light tobacco smoker (10 or fewer cigarettes/day) Exercise Type/Frequency Exercises regularly Allergies, Adverse Reactions, Alerts Description No Known Drug Allergies Medications Active Medications SIG Qnty Indications Ordering Provider Date Hydrocodone 1 every 8 hours 90tabs Vijay Miranda, 12/17/2018 Bitartrate/Acetamino as needed for N.P. phen pain 7.5-325mg Tablets Gabapentin 1 by mouth 30caps Perfecto Bowser, 11/05/2018 300mg three times a M.D. Capsules day Ondansetron 1 tab every 8 12tabs Vijay Miranda, 07/26/2018 4mg hours as needed N.P. Tablets Dispers for nausea Paroxetine HCL 1 by mouth once 90tabs F41.1 Vijay Miranda, 07/19/2018 10mg a day N.P. Tablets Carbidopa-Levodopa take 1 tab by 360tabs Vijay Miranda, 03/28/2018 mouth four N.P. 25-100mg Tablets times a day.. Clonazepam take one pill 60tabs F41.1 Perfecto Bowser, 01/04/2018 1mg every 12 hours, M.D. Tablets Carbidopa-Levodopa take 1 pill 3-4 360tabs Z96.89 Perfecto Bowser, 2017 ER times a day. M.D. 50-200mg Tablets ER History Medications Hydrocodone Take 1 by 90tabs Perfecto 12/17/2018 - Bitartrate/Acetaminophen mouth 3 times Nubia Bowser 12/16/2018 7.5-325mg a day for Tablets pain Gabapentin take 1 cap M54.5 Vijay Miranda, 08/21/2018 - 100mg Capsules three times N.P. 11/04/2018 daily Medrol take as 21units M54.5 Perfecto 07/19/2018 - 4mg TBPK directed Nubia Bowser 08/05/2018 Immunizations Description No Information Available Vital Signs Date Vital Result Comment 12/26/2018 1:23pm Height 71 inches 5'11" Weight 170.00 lb BP Systolic 122 mmHg BP Diastolic 86 mmHg Pain Level 7 BMI (Body Mass Index) 23.7 kg/m2 11/05/2018 8:24am Height 71 inches 5'11" Weight 170.12 lb Heart Rate 88 /min BP Systolic 118 mmHg BP Diastolic 84 mmHg BMI (Body Mass Index) 23.7 kg/m2 Results Test Date Facility Test Result H/L Range Note Laboratory test 08/21/2018 [facility] TSH 1.82 mcIU/mL Normal 0.34-5.[address] ([place] [address] Stim Horm) [phone] CBC Auto Diff 08/21/2018 [facility] White Blood 7.4 10^3/uL Normal 3.5-10.[address] [place] [address] [phone] Red Blood Count 4.83 10^6/uL Normal 4.18-5.48 Hemoglobin 15.9 g/dL Normal 14.0-18.0 Hematocrit 47 % Normal 42-52 Mean Corpuscular Volume 98 fL High 80-94 Mean Corpuscular Hemoglobin 33 pg High 27-31 Mean Corpuscular HGB Conc 34 g/dL Normal 31-36 Red Cell Distribution Width 14 % Normal 10.5-15 Platelet Count 256 10^3/uL Normal 150-450 Mean Platelet Volume 8.4 fL Normal 7.4-10.4 Abs Neutrophils 4.6 10^3/uL Normal 1.5-7.7 Abs Lymphocytes 1.9 10^3/uL Normal 1.0-4.8 Abs Monocytes 0.5 10^3/uL Normal 0-0.8 Abs Eosinophils 0.3 10^3/uL Normal 0-0.6 Abs Basophils 0.0 10^3/uL Normal 0-0.2 Abs Nucleated RBC 0.0 10^3/uL Granulocyte % 62.2 % Lymphocyte % 25.9 % Monocyte % 6.7 % Eosinophil % 4.7 % Basophil % 0.5 % Nucleated Red Blood Cells % 0.2 Comp Metabolic 08/21/2018 [facility] Sodium 140 mmol/L Normal 135-[address] [place] [address] [phone] Potassium 4.2 mmol/L Normal 3.5-5.0 Chloride 104 mmol/L Normal 101-111 Co2 Carbon Dioxide 31 mmol/L Normal 22-32 Anion Gap 5 mmol/L Normal 2-11 Glucose 107 mg/dL High 70-100 Blood Urea Nitrogen 10 mg/dL Normal 6-24 Creatinine 0.86 mg/dL Normal 0.67-1.17 BUN/Creatinine Ratio 11.6 Normal 8-20 Calcium 9.5 mg/dL Normal 8.6-10.3 Total Protein 7.0 g/dL Normal 6.4-8.9 Albumin 4.3 g/dL Normal 3.2-5.2 Globulin 2.7 g/dL Normal 2-4 Albumin/Globulin Ratio 1.6 Normal 1-3 Total Bilirubin 0.40 mg/dL Normal 0.2-1.0 Alkaline Phosphatase 102 U/L Normal 34-104 Alt 4 U/L Low 7-52 Ast 19 U/L Normal 13-39 Egfr Non- 94.9 >60 Egfr 114.8 >60 1 1 Because ethnic data is not always readily available, this report includes an eGFR for both -Americans and non- Americans. The National Kidney Disease Education Program (NKDEP) does not endorse the use of the MDRD equation for patients that are not between the ages of 18 and 70, are , have extremes of body size, muscle mass, or nutritional status, or are non- or non-. According to the National Kidney Foundation, irrespective of diagnosis, the stage of the disease is based on the level of kidney function: Stage Description GFR(mL/min/1.73 m(2)) 1 Kidney damage with normal or decreased GFR 90 2 Kidney damage with mild decrease in GFR 60-89 3 Moderate decrease in GFR 30-59 4 Severe decrease in GFR 15-29 5 Kidney failure <15 (or dialysis) Procedures Date Code Description Status 11/05/2018 89252 Neurostimulator Pulse Generator Analysis W/O Reprogramming Completed 07/26/2018 48359 With Brain Neurostimulator Pulse Generator, Each Addt'l 15 Completed Mins 07/26/2018 64684 With Brain Neurostimulator Pulse Generator, First 15 Completed Minutes Medical Devices Description No Information Available Encounters Type Date Location Provider Dx Diagnosis Office Visit 11/05/2018 Kiya Bowser G2Noreen Parkinson' s 8:45a [facility] disease F41.9 Anxiety disorder, unspecified M54.5 Low back pain M51.17 Intvrt disc disorders w radiculopathy, lumbosacral region Z45.42 Encounter for adjustment and management of neurostimulator Office Visit 08/21/2018 3:45p Kiya Armando G20 [facility]'s [facility] M.D. disease F41.9 Anxiety disorder, unspecified R53.83 Other fatigue Office Visit 08/06/2018 12:30p Kiya Bowser M54.5 Low back [facility] pain F41.9 Anxiety disorder, unspecified G20 Parkinson's disease M51.17 Intvrt disc disorders w radiculopathy, lumbosacral region Office Visit 07/28/2018 [facility] Ewa F41.9 Anxiety 7:00a Clinic Nubia Silver disorder, unspecified G20 Parkinson's disease Z96.89 Presence of other specified functional implants Office Visit 07/19/2018 9:45a [facility] Perfecto Bowser, G20 [facility] Nubia disease F41.1 Generalized anxiety disorder M54.5 Low back pain Z96.89 Presence of other specified functional implants Assessments Date Code Description Provider 12/26/2018 M47.816 Lumbar spondylosis SAUD Echevarria 11/05/2018 G20 Parkinson's disease Perfecto Bowser M.D. 11/05/2018 F41.9 Anxiety disorder, unspecified Perfecto Bowser M.D. 11/05/2018 M54.5 Low back pain Perfecto Bowser M.D. 11/05/2018 M51.17 Intervertebral disc disorders with Perfecto Bowser M.D. radiculopathy, lumbosacra 11/05/2018 Z45.42 Encounter for adjust and mgmt of Perfecto Bowser M.D. neuropacemaker (brain) 08/21/2018 G20 Parkinson's disease Jon Perkins M.D. 08/21/2018 F41.9 Anxiety disorder, unspecified Jon Perkins M.D. 08/21/2018 R53.83 Other fatigue Jon Perkins M.D. 08/06/2018 M54.5 Low back pain Perfecto Bowser M.D. 08/06/2018 F41.9 Anxiety disorder, unspecified Perfecto Bowser M.D. 08/06/2018 G20 Parkinson's disease Perfecto Bowser M.D. 08/06/2018 M51.17 Intervertebral disc disorders with Perfecto Bowser M.D. radiculopathy, lumbosacral region 07/28/2018 F41.9 Anxiety disorder, unspecified Ewa Silver M.D. 07/28/2018 G20 Parkinson's disease Ewa Silver M.D. 07/28/2018 Z96.89 Presence of other specified functional Ewa Cowdery, M.D. implants 07/26/2018 G20 Parkinson's disease Perfecto Bowser M.D. 07/26/2018 Z45.42 Encounter for adjust and mgmt of Perfecto Bowser M.D. neuropacemaker (brain) 07/19/2018 G20 Parkinson's disease Perfecto Bowser M.D. 07/19/2018 F41.1 Generalized anxiety disorder Perfecto Bowser M.D. 07/19/2018 M54.5 Low back pain Perfecto Bowser M.D. 07/19/2018 Z96.89 Presence of other specified functional Perfecto Bowser M.D. implants Plan of Treatment Future Appointment(s):02/07/2019 10:00 am - SAUD Echevarria at [facility]02/08/2019 8:00 am - Perfecto Bowser M.D. at [facility]12/26/2018 - Mitch Orr, PAM47.816 Spondylosis w/o myelopathy or radiculopathy, lumbar region Functional Status Description No Information Available Mental Status Description No Information Available Referrals Refer to Dr Reason for Referral Status Appt Date Casimiro Manzano MD CT of lumbar spine results Sent [address] [place] [phone]
[2019-01-21] MEDS ORDERED: Ondansetron INJ* 2 MG/ML VIAL IV PRN (16:21)
[2019-01-21] MEDS ORDERED: Acetaminophen TAB* 325 MG PO PRN (16:21)
[2019-01-21] MEDS: Morphine INJ* 2 MG/ML 1 ML SYRINGE (TWO MG - NEW SYRINGE VERSION) IV PRN ×2 (17:14→23:28)
[2019-01-21] MEDS: Carbidopa/Levodop CR 50/200(*) TAB.CR PO SCH ×2 (17:31→20:39)
[2019-01-21] MEDS: Carbidopa/Levodop 25/100 MG TAB(*) PO SCH ×2 (17:31→20:39)
--- NOTE | 2019-01-21 18:43 | HP ---
CC: Mitch Orr neurosurgical SAUD HISTORY AND PHYSICAL: DATE OF ADMISSION: 01/21/19 PRIMARY CARE PROVIDER: None. CHIEF COMPLAINT: Status post myelogram. HISTORY OF PRESENT ILLNESS: This is a 48-year-old male with past medical history of osteoarthritis at the back region as well as degenerative disk disease, with symptomatology of constant back pain as well as paresthesias of the lower legs, who was brought into the hospital because of myelogram. He underwent a CAT scan this morning as well as myelogram of the lumbar spine. Subsequently, the hospitalist service was contacted to observe the patient. The requesting physician requested that we observe the patient overnight for seizures. Currently, the patient does not have any fevers, no chills, no chest pain, no shortness of breath, no palpitations. He has back pain, which is chronic in nature slightly worse after the myelogram. He also has some paresthesias of the lower legs; however, that is chronic in nature. He does not have any abdominal pain, no nausea, no vomiting, no diarrhea, no headaches. PAST MEDICAL HISTORY: 1. Parkinson's disease. 2. Anxiety/panic disorder. PAST SURGICAL HISTORY: 1. Neurostimulator placement, back surgery. 2. Appendectomy. MEDICATIONS: Home medications include: 1. Hydrocodone/Tylenol 7.5 mg /325 mg 1 tablet t.i.d. 2. Carbidopa/levodopa 1 tab 3 times a day 50/200 mg. 3. Clonazepam 1 mg b.i.d. 4. Gabapentin 300 mg t.i.d. 5. Carbidopa/levodopa 25/100 mg 1 tab 4 times a day. 6. Paroxetine 10 mg daily. 7. Zofran 4 mg every 8 hours as needed. ALLERGIES: No known drug allergies. SOCIAL HISTORY: The patient lives in his truck, does not smoke, no alcohol use. FAMILY HISTORY: Mother: Heart problems. Sister: Parkinson's disease. REVIEW OF SYSTEMS: As per the HPI. Otherwise, the 11-point review of systems is done and is otherwise negative. PHYSICAL EXAMINATION GENERAL: This is a well-developed, well-nourished male, lying in hospital bed, in no acute distress. VITAL SIGNS: Blood pressure of 127/82, heart rate of 66, respiratory rate 15, oxygen saturation 99% on room air, temperature of 98.8. HEENT: Pupils are equal, round, and reactive to light. Atraumatic, normocephalic. Oral mucosa is moist. There is no nystagmus. Range of motion of the neck is intact. NECK: Supple with no JVD. HEART: There is no chest wall tenderness, regular rate and rhythm, no murmurs. Neurostimulator was palpated. LUNGS: Lungs are clear to auscultation without any rales or rhonchi, no wheezing. ABDOMEN: Bowel sounds are normoactive in all 4 quadrants. Abdomen soft, nontender, nondistended. BACK: There is no CVA tenderness. Band-Aid noted at the lumbar back region with no surrounding erythema or bleeding. There is no swelling. EXTREMITIES: There is no lower extremity edema, no calf tenderness. Resting tremor noted at bilateral upper extremities. NEUROLOGICAL: Alert, oriented x3, with no focal neurological deficits. Resting tremors at hand bilaterally. PSYCHIATRIC: Mood is appropriate. SKIN: There are no rashes or lesions. IMPRESSION AND PLAN: 1. The patient is status post myelogram: We will monitor the patient, seizure precaution. The patient under observation, regular diet, vitals per course, pain control, Zofran as needed for nausea., Regular unrestricted diet. 2. History of Parkinson's disease: Continue home regimen. 3. History of anxiety/panic disorder. Continue home dose of Klonopin and paroxetine. 4. DVT prophylaxis: Sequential compression device. 5. Seizure precaution has been ordered. [id number]/[facility] #: [id number] MTDD
[2019-01-21] MEDS: HYDROcodone/ACETAMIN 5-325 MG* 1 TAB PO PRN (20:37)
[2019-01-21] MEDS: Gabapentin CAP(*) 300 MG PO SCH (20:38)
[2019-01-21] MEDS: clonazePAM TAB(*) 1 MG PO SCH (20:39)
[2019-01-21] MEDS ORDERED: Scopolamine 1.5 mg* PATCH TRANSDERM SCH (23:45)
[2019-01-22] MEDS: HYDROcodone/ACETAMIN 5-325 MG* 1 TAB PO PRN ×2 (05:59→12:30)
[2019-01-22] MEDS: Gabapentin CAP(*) 300 MG PO SCH ×2 (07:40→13:58)
[2019-01-22] MEDS: clonazePAM TAB(*) 1 MG PO SCH (07:40)
[2019-01-22] MEDS: Carbidopa/Levodop 25/100 MG TAB(*) PO SCH ×2 (07:40→12:30)
[2019-01-22] MEDS: Carbidopa/Levodop CR 50/200(*) TAB.CR PO SCH ×2 (07:41→12:30)
[2019-01-22] MEDS: Morphine INJ* 2 MG/ML 1 ML SYRINGE (TWO MG - NEW SYRINGE VERSION) IV PRN (07:41)
[2019-01-22] MEDS ORDERED: PARoxetine HCL TAB* 10 MG PO SCH (09:00)
[2019-01-22 12:59] VITALS: BP 108/63
--- NOTE | 2019-01-23 00:15 | DS ---
CC: Dr. Manzano; Dr. Bowser * DISCHARGE SUMMARY: DATE OF ADMISSION: 01/21/19 DATE OF DISCHARGE: 01/22/19 PRIMARY CARE PROVIDER: None. PRINCIPAL DIAGNOSIS: Status post CT myelogram. SECONDARY DIAGNOSES: Parkinson's disease. DISCHARGE MEDICATIONS: 1. Carbidopa/levodopa ER 25/100 one tab p.o. 4 times daily. 2. Paxil 10 mg p.o. daily. 3. Zofran ODT 4 mg p.o. q.8 hours p.r.n. nausea. 4. Hydrocodone/Tylenol 7.5/325 one tab p.o. t.i.d. 5. Gabapentin 300 mg p.o. t.i.d. 6. Clonazepam 1 mg p.o. b.i.d. 7. Carbidopa/levodopa CR 50/200 one tab p.o. t.i.d. HOSPITAL COURSE: Mr. Silver is a 48-year-old male who has a history of Parkinson's disease and chronic back pain, who was seen by Neurosurgery for concerns of chronic back pain. As he has deep brain stimulator it was felt that the patient cannot undergo MRI of the spine. He therefore was recommended to undergo CT myelogram. This was performed on 01/21/19. The patient is homeless and has been living out of his truck. The patient was felt need observation overnight in the hospital to maintain precautions following the CT myelogram. The patient was placed on observation status. He did well overnight. The patient is felt to be stable for discharge. The patient was seen by social work and case management manager. The patient is unable to live with his mom. As the patient has been homeless, he is open to being discharged to [facility] to find a temporary hotel. A letter of medical necessity was drafted and provided to [facility]. PHYSICAL EXAMINATION: On the day of discharge, the patient is awake, alert, and oriented, lying in bed, in no acute distress. Cardiac exam reveals normal S1, S2 with a regular rate and rhythm. Lungs are clear. Abdomen is soft, nontender, nondistended. The patient moves all extremities symmetrically. FOLLOWUP CONCERNS: The patient is being discharged to temporary housing today, 01/22/19. ACTIVITY LEVEL: As tolerated. CONDITION ON DISCHARGE: Stable. DIET: Regular. FOLLOWUP: The patient should followup with Dr. Manzano in the next 1 to 2 weeks to review the result of his CT myelogram. The patient will also continue to follow with Dr. Bowser for treatment of his Parkinson's disease. TIME SPENT: Twenty-five minutes was spent discharging this patient. [id number]/[facility] #: [id number] MTDD
[2019-01-24] MEDS ORDERED: Scopolamine PATCH Remove* 1 NOTE MISC PATCH OFF SCH (23:45)
== END 2019-01-22 14:10 | disposition home or self-care (01) ==
LOC: MED 15:35
PROVIDERS: ADMIT Internal Medicine; ATTEND Hospitalist
DX: G97.1 Other reaction to spinal and lumbar puncture (principal); G20 Parkinson's disease; M54.9 Dorsalgia, unspecified; G89.29 Other chronic pain; F41.9 Anxiety disorder, unspecified; Z79.899 Other long term (current) drug therapy
CPT/HCPCS: 96374; 96376; A9270-GY; G0378; J2270

== ENCOUNTER 2019-02-15 20:49 | Emergency (ER) | payer MEDICARE ==
--- OUTSIDE RECORDS SUMMARY | 2019-02-15 21:19 | XMS REPORT | Continuity of Care Document ---
:1970 External Reference #:[id number] Author Name Perfecto Bowser M.D. 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 Onset: 2018 lumbar intervertebral disc Lumbar spondylosis Perfecto Bowser M.D. Onset: 02/04/2019 Social History Type Date Description Comments Sex Unknown ETOH Use Rarely consumes alcohol Tobacco Use Start: Unknown Patient is a current smoker, smokes every day Recreational Drug Use Denies Drug Use Tobacco Use Start: Unknown Light tobacco smoker (10 or fewer cigarettes/day) Smoking Status Reviewed: 02/04/19 Light tobacco smoker (10 or fewer cigarettes/day) Exercise Type/Frequency Exercises regularly Allergies, Adverse Reactions, Alerts Description No Known Drug Allergies Medications Active Medications SIG Qnty Indications Ordering Provider Date Carbidopa-Levodopa Take 1 pill 5 150tabs G20 Perfecto Bowser 02/04/2019 times a day M.D. 25-100mg Tablets Hydrocodone 1 every 8 hours 90tabs Vijay Miranda, 12/17/2018 Bitartrate/Acetamino as needed for N.P. phen pain 7.5-325mg Tablets Gabapentin 1 by mouth 30caps Perfecto Bowser, 11/05/2018 300mg three times a M.D. Capsules day Ondansetron 1 tab every 8 12tabs Vijay [place], 07/26/2018 4mg hours as needed N.P. Tablets Dispers for nausea Paroxetine HCL 1 by mouth once 90tabs F41.1 [facility], 07/19/2018 10mg a day N.P. Tablets Clonazepam take one pill 60tabs F41.1 [facility], 01/04/2018 1mg every 12 hours, N.P. Tablets Carbidopa-Levodopa take 1 pill 3-4 360tabs Z96.89 [facility], 2017 ER times a day. N.P. 50-200mg Tablets ER History Medications Hydrocodone Take 1 by 90tabs Perfecto 12/17/2018 - Bitartrate/Acetaminophen mouth 3 Niels, Nubia 12/16/2018 7.5-325mg times a day Tablets for pain Gabapentin take 1 cap M54.5 [facility], 08/21/2018 - 100mg Capsules three times N.P. 11/04/2018 daily Immunizations Description No Information Available Vital Signs Date Vital Result Comment 02/04/2019 11:40am Height 71 inches 5'11" Weight 168.00 lb Heart Rate 85 /min BP Systolic 128 mmHg BP Diastolic 82 mmHg BMI (Body Mass Index) 23.4 kg/m2 12/26/2018 1:23pm Height 71 inches 5'11" Weight 170.00 lb BP Systolic 122 mmHg BP Diastolic 86 mmHg Pain Level 7 BMI (Body Mass Index) 23.7 kg/m2 Results Test Date Facility Test Result H/L Range Note Inr/Protime [facility] Inr 0.94 Normal 0.82-1.09 [address] [place] [address] [phone] Laboratory test [facility] Partial 39.2 seconds High 26.0-38.0 finding [address] [address] PTT [phone] Platelet Count [facility] Platelet 192 10^3/uL Normal 150-[address] [place] [address] [phone] Mean Platelet Volume 8.1 fL Normal 7.4-10.4 Laboratory 08/21/2018 [facility] TSH (Thyroid 1.82 Normal 0.34 -5.60 test finding [address] Stim Horm) mcIU/mL [place], [place] [id number] [phone] CBC Auto Diff 08/21/2018 [facility] White Blood 7.4 10^3/uL Normal 3.5-10.[address] Count [place], [place] [id number] [phone] Red Blood Count 4.83 10^6/uL Normal 4.18-5.48 [...] Blood Cells % 0.2 Comp Metabolic 08/21/2018 [facility] Sodium 140 mmol/L Normal 135-[address] [place] [address] [phone] Potassium 4.2 mmol/L Normal 3.5-5.0 Chloride 104 [...] Egfr Non- 94.9 >60 Egfr 114.8 >60 2 1 Standard intensity warfarin therapeutic range: 2.0-3.0 High intensity warfarin therapeutic range: 2.5-3.5 2 Because ethnic data is not always readily [...] dialysis) Procedures Date Code Description Status 11/05/2018 99379 Neurostimulator Pulse Generator Analysis W/O Reprogramming Completed Medical Devices Description No Information Available Encounters Type Date Location Provider Dx Diagnosis Office Visit 01/22/2019 [facility] Socorro Quinones, G20 Parkinson's 8:35a [facility] D.O. disease Hospitalists Office Visit 01/21/2019 [facility] Shantel Nava, R20.2 Paresthesia of 8:35a ramakrishna Mittal MD skin Hospitalists M54.9 Dorsalgia, unspecified Office 12/26/2018 [facility] Mitch Orr, M47.816 Spondylosis w/o Visit 1:30p [facility] myelopathy or radiculopathy, lumbar region Office 11/05/2018 [facility] Perfecto G20 Parkinson's Visit 8:45a [facility] Bowser M.D. disease F41.9 Anxiety disorder, unspecified M54.5 Low back pain M51.17 Intvrt disc disorders w radiculopathy, lumbosacral region Z45.42 Encounter for adjustment and management of neurostimulator Office Visit 08/21/2018 3:45p [facility] Armando G20 [facility] Perkins M.D. disease F41.9 Anxiety disorder, unspecified R53.83 Other fatigue Office Visit 08/06/2018 12:30p [facility] Lonnie Bowser M54.5 [facility] pain F41.9 Anxiety disorder, unspecified G20 Parkinson's disease M51.17 Intvrt disc disorders w radiculopathy, lumbosacral region Assessments Date Code Description Provider 02/04/2019 G20 Parkinson's disease Perfecto Bowser M.D. 02/04/2019 M47.816 Lumbar spondylosis Perfecto Bowser M.D. 02/04/2019 F41.9 Anxiety disorder, unspecified Perfecto Bowser M.D. 02/04/2019 M54.5 Low back pain Perfecto Bowser M.D. 01/22/2019 G20 Parkinson's disease Socorro Quinones D.O. 01/21/2019 R20.2 Paresthesia of skin Shantel Nava MD 01/21/2019 M54.9 Dorsalgia, unspecified Shantel Nava MD 12/26/2018 M47.816 Lumbar spondylosis SAUD Echevarria 11/05/2018 [...] with Perfecto Bowser M.D. radiculopathy, lumbosacral region Plan of Treatment Future Appointment(s):03/13/2019 10:15 am - Perfecto Bowser M.D. at [id number]/04/2019 - Perfecto Bowser M.D.G20 Parkinson's diseaseNew Medication:Carbidopa-Levodopa 25-100 mg - Take 1 pill 5 times a dayFollow up:Follow up in 1 rhpppE26.816 Lumbar uwrrovmdmyfV54.9 Anxiety disorder, fzqtyrphulgO35.5 Low back pain Functional Status Description No Information Available Mental Status Description No Information Available Referrals Description No Information Available
--- OUTSIDE RECORDS SUMMARY | 2019-02-15 21:19 | XMS REPORT | Continuity of Care Document ---
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 25-100mg Tablets Hydrocodone 1 every 8 hours 90tabs Vijay Miranda, 12/17/2018 Bitartrate/Acetamino as needed for N.P. phen pain 7.5-325mg Tablets Gabapentin 1 by mouth 30caps Perfecto Bowser, 11/05/2018 300mg three times a M.D. Capsules day Ondansetron 1 tab every 8 12tabs Vijay Montgomery, 07/26/2018 4mg hours as needed N.P. Tablets Dispers for nausea Paroxetine HCL 1 by mouth once 90tabs F41.1 Vijay Montgomery, 07/19/2018 10mg a day N.P. Tablets Clonazepam take one pill 60tabs F41.1 Vijay Montgomery, 01/04/2018 1mg every 12 hours, N.P. Tablets Carbidopa-Levodopa take 1 pill 3-4 360tabs Z96.89 [facility], 2017 ER times a day. N.P. 50-200mg Tablets ER History Medications Hydrocodone Take 1 by 90tabs Perfecto 12/17/2018 - Bitartrate/Acetaminophen mouth 3 Niels, Nubia 12/16/2018 7.5-325mg times a day Tablets for pain Gabapentin take 1 cap M54.5 [facility], 08/21/2018 - 100mg Capsules three times N.P. 11/04/2018 daily Immunizations Description No Information Available Vital Signs Date Vital Result Comment 02/07/2019 10:02am Height 71 inches 5'11" Weight 168.00 lb Heart Rate 78 /min BP Systolic Sitting 98 mmHg BP Diastolic Sitting 60 mmHg BMI (Body Mass Index) 23.4 kg/m2 02/04/2019 11:40am Height 71 inches 5'11" Weight 168.00 lb Heart Rate 85 /min BP Systolic 128 mmHg BP Diastolic 82 mmHg BMI (Body Mass Index) 23.4 kg/m2 Results Test Acquired Date Facility Test Result H/L Range Note Inr/Protime 01/21/2019 [facility] Inr 0.94 Normal 0.82-1.[address] [place] [address] [phone] Laboratory test 01/21/2019 [facility] Partial 39.2 High 26.0- 38.[address] [place] [address] PTT [phone] Platelet Count 01/21/2019 [facility] Platelet 192 10^3/uL Normal 150-[address] [place] [address] [phone] Mean Platelet Volume 8.1 fL Normal 7.4-10.4 Laboratory 08/21/2018 [facility] TSH (Thyroid 1.82 Normal 0.34 -5.[address] Stim Horm) mcIU/[place] [address] [phone] CBC Auto Diff 08/21/2018 [facility] White Blood 7.4 10^3/uL Normal 3.5-10.[address] [place] [address] [phone] Red Blood Count 4.83 10^6/uL Normal 4.18-5.48 [...] Blood Cells % 0.2 Comp Metabolic 08/21/2018 [facility] Sodium 140 mmol/L Normal 135-[address] [place] [address] [phone] Potassium 4.2 mmol/L Normal 3.5-5.0 Chloride 104 [...] dialysis) Procedures Date Code Description Status 11/05/2018 89353 Neurostimulator Pulse Generator Analysis W/O Reprogramming Completed Medical Devices Description No Information Available Encounters Type Date Location Provider Dx Diagnosis Office Visit 01/22/2019 [facility] Socorro Quinones, G20 Parkinson's 8:35a Assoc,pc D.O. disease Hospitalists Office Visit 01/21/2019 [facility] Shantel Nava, R20.2 Paresthesia of 8:35a ramakrishna Mittal MD skin Hospitalists M54.9 Dorsalgia, unspecified Office 12/26/2018 [facility] Mitch Orr, M47.816 Spondylosis w/o Visit 1:30p [facility] V[facility]IC[facility] myelopathy or radiculopathy, lumbar region Office 11/05/2018 [facility] Khurramopher G20 Parkinson's Visit 8:45a [facility] Bowser M.D. disease F41.9 Anxiety disorder, unspecified M54.5 Low back pain M51.17 Intvrt disc disorders w radiculopathy, lumbosacral region Z45.42 Encounter for adjustment and management of neurostimulator Office Visit 08/21/2018 3:45p [facility] Lonnie Armando G20 [facility] Perkins M.D. disease F41.9 Anxiety disorder, unspecified R53.83 Other fatigue Assessments Date Code Description Provider 02/07/2019 M47.816 Lumbar spondylosis ASUD Echevarria 02/04/2019 G20 Parkinson's disease Perfecto Bowser M.D. 02/04/2019 M47.816 Lumbar spondylosis Perfecto Bowser M.D. 02/04/2019 F41.9 Anxiety disorder, unspecified Perfecto Bowser M.D. 02/04/2019 M54.5 Low back pain Perfecto Bowesr M.D. 01/22/2019 G20 Parkinson's disease Socorro Quinones [...] 08/21/2018 R53.83 Other fatigue Jon Perkins M.D. Plan of Treatment Future Appointment(s):03/13/2019 3:00 pm - SAUD Echevarria at [facility]03/13/2019 10:15 am - Perfecto Bowser M.D. at [facility]/07/2019 - Mitch Orr, PAM47.816 Spondylosis w/o myelopathy or radiculopathy, lumbar regionReferral:Yulia Cornejo MD, Pain Management- anesthesiFollow up:f/u in 1 month Functional Status Description No Information Available Mental Status Description No Information Available Referrals Refer to Dr Reason for Referral Status Appt Date Yulia Cornejo MD Created [address] [place] [address] [phone]
[2019-02-16] MEDS ORDERED: Lidocaine 1% MPF ** 5 ML VIAL INJ ONE (01:09)
[2019-02-16] MEDS ORDERED: Penicillin VK TAB* 250 MG PO ONE (01:10)
[2019-02-16] MEDS ORDERED: Lidocaine 1% MPF ** 5 ML VIAL ONE (01:10)
--- NOTE | 2019-02-16 01:11 | ED ---
Throat Pain/Nasal Congestion - HPI Summary HPI Summary: Patient complains of right-sided upper and lower dental pain 2 days. Denies trauma, fever, purulent drainage, cough, sore throat, CP, SOB, N/V/V abdominal pain, change in urine, change in BM. Medical history is Parkinson's neuro stimulator. - History of Current Complaint Chief Complaint: EDDentalPain Time Seen by Provider: 02/16/19 00:57 Hx Obtained From: Patient Onset/Duration: Sudden Onset, Lasting Days Severity: Moderate Associated Signs And Symptoms: Positive: Negative Cough: None - Allergies/Home Medications Allergies/Adverse Reactions: Allergies Allergy/AdvReac Type Severity Reaction Status Date / Time No Known Allergies Allergy Verified 02/15/19 21:04 PMH/Surg Hx/FS Hx/Imm Hx Endocrine/Hematology History: Denies: Hx Diabetes Cardiovascular History: Reports: Hx Angina Denies: Hx Hypertension, Hx Pacemaker/ICD History: Denies: Hx Renal Disease Sensory History: Reports: Hx Contacts or Glasses - Reading glasses not with patient at this time Denies: Hx Deafness, Hx Hearing Aid Opthamlomology History: Reports: Hx Contacts or Glasses - Reading glasses not with patient at this time EENT History: Denies: Hx Deafness Neurological History: Reports: Hx Migraine - has MRI scheduled for [facility] in [place], Other Neuro Impairments/Disorders - Parkinson's disease Psychiatric History: Reports: Hx Anxiety, Hx Depression, Hx Panic Disorder - ANXIETY ATTACKS PT HAS PARKINSONS, Hx Community Mental Health Tx Denies: Hx Attention Deficit Hyperactivity Disorder, Hx Eating Disorder, Hx Post Traumatic Stress Disorder, Hx Inpatient Treatment, Hx Schizophrenia, Hx Bipolar Disorder, Hx Suicide Attempt, Hx of Violent Episodes Against Others, Hx Substance Abuse, Other Psychiatric Issues/Disorders - Surgical History Surgery Procedure, Year, and Place: APPENDIX AGE 13. 07/10/17 - [facility] - DEEP BRAIN STIMULATOR - IS NOT MRI CONDITIONAL - SO PT IS NOT ABLE TO HAVE MRIs- HIS INFORMATION FROM [facility] STATES IT CAN OVER HEAT AND HIS REMOTE DOES NOT HAVE A MRI SETTING - Immunization History Date of Tetanus Vaccine: utd Date of Influenza Vaccine: none Infectious Disease History: No Infectious Disease History: Denies: Traveled Outside the [place] in Last 30 Days - Family History Known Family History: Positive: Cardiac Disease - angina Negative: Hypertension - Social History Alcohol Use: None Hx Substance Use: Yes Substance Use Type: Reports: Marijuana Substance Use Comment - Amount & Last Used: daily Hx Tobacco Use: Yes Smoking Status (MU): Smoker, Current Status Unknown Type: Cigarettes Review of Systems Constitutional: Negative Eyes: Negative Positive: Dental Pain Cardiovascular: Negative Respiratory: Negative Gastrointestinal: Negative Genitourinary: Negative Musculoskeletal: Negative Skin: Negative Neurological: Negative Psychological: Normal All Other Systems Reviewed And Are Negative: Yes Physical Exam - Summary Physical Exam Summary: No oral abscess, lesions noted. Multiple fillings. No dental caries or dental trauma noted. Triage Information Reviewed: Yes Vital Signs On Initial Exam: Initial Vitals Temp Pulse Resp BP Pulse Ox 98.0 F 88 16 154/94 96 02/15/19 21:00 02/15/19 21:00 02/15/19 21:00 02/15/19 21:00 02/15/19 21:00 Vital Signs Reviewed: Yes Appearance: Positive: Well-Appearing Skin: Positive: Warm Head/Face: Positive: Normal Head/Face Inspection Eyes: Positive: Normal Dental: Negative: Gross Decay/Caries @, Dental Fracture @, Abscess @, Cellulitis @, Bleeding Neck: Positive: Supple Respiratory/Lung Sounds: Positive: Clear to Auscultation Cardiovascular: Positive: Normal Abdomen Description: Positive: Nontender Musculoskeletal: Positive: Normal Neurological: Positive: Normal Psychiatric: Positive: Normal AVPU Assessment: Alert - Woodward Coma Scale Best Eye Response: 4 - Spontaneous Best Motor Response: 6 - Obeys Commands Best Verbal Response: 5 - Oriented Coma Scale Total: 15 Procedures - Sedation Patient Received Moderate/Deep Sedation with Procedure: No Diagnostics - Vital Signs Vital Signs Temp Pulse Resp BP Pulse Ox 02/15/19 21:00 98.0 F 88 16 154/94 96 - Laboratory Lab Statement: Any lab studies that have been ordered have been reviewed, and results considered in the medical decision making process. EENT Course/Dx - Course Course Of Treatment: Patient complains of right-sided upper and lower dental pain 2 days. Denies trauma, fever, purulent drainage, cough, sore throat, CP, SOB, N/V/V abdominal pain, change in urine, change in BM. Medical history is Parkinson's neuro stimulator. Vital signs within normal limits. Dental block for both upper and lower posterior teeth with lidocaine 1%. Improvement in pain. Patient states he will go to the dentist tomorrow at [facility]. Patient has prescription for hydrocodone 7.5 3 times a day every month. Rx for penicillin VK provided - Diagnoses Provider Diagnoses: Toothache Discharge ED - Sign-Out/Discharge Documenting (check all that apply): Patient Departure - Discharge Plan Condition: Stable Disposition: HOME Prescriptions: Penicillin VK TAB* [Penicillin VK 250 mg Tab*] 500 mg PO QID 7 Days #28 tab Patient Education Materials: Toothache (ED) Referrals: No Primary Care Phys,NOPCP [Primary Care Provider] - Additional Instructions: Take antibiotics as directed. Follow-up with your dentist as soon as possible. - Billing Disposition and Condition Condition: STABLE Disposition: Home
[2019-02-16 01:40] VITALS: BP 127/84
== END 2019-02-16 01:39 | disposition home or self-care (01) ==
LOC: ED 20:49
DX: K08.89 Other specified disorders of teeth and supporting structures (principal); G20 Parkinson's disease; F41.9 Anxiety disorder, unspecified; F32.9 Major depressive disorder, single episode, unspecified; F17.210 Nicotine dependence, cigarettes, uncomplicated
CPT/HCPCS: 99282; A9270-GY

== ENCOUNTER 2019-02-22 18:07 | Emergency (ER) | payer MEDICARE ==
--- NOTE | 2019-02-22 18:14 | UC ---
Dental HPI - HPI Summary HPI Summary: 48 yo male presents with dental complaint. He tells me that around 1130 this morning he had 3 teeth extracted. Since that time has had bleeding from the extraction sites. He has been applying gauze, but when he removes it the clots come with the gauze and it starts bleeding again. No hx of blood disorders. He takes no blood thinning medication. He has been taking his narcotic pain medication for his discomfort. Denies fever. - History of Current Complaint Stated Complaint: EXTRACTION SITES ARE STILL BLEEDING Hx Obtained From: Patient Onset/Duration: Sudden Onset Severity: Moderate Pain Intensity: 5 Pain Scale Used: 0-10 Numeric - Allergies/Home Medications Allergies/Adverse Reactions: Allergies Allergy/AdvReac Type Severity Reaction Status Date / Time No Known Allergies Allergy Verified 02/15/19 21:04 PMH/Surg Hx/FS Hx/Imm Hx Neurological History: Migraine, Other - Parkinsons - Surgical History Surgical History: Yes Surgery Procedure, Year, and Place: APPENDIX AGE 13. 07/10/17 - [facility] - DEEP BRAIN STIMULATOR - IS NOT MRI CONDITIONAL - SO PT IS NOT ABLE TO HAVE MRIs- HIS INFORMATION FROM [facility] STATES IT CAN OVER HEAT AND HIS REMOTE DOES NOT HAVE A MRI SETTING - Family History Known Family History: Positive: Cardiac Disease - angina Negative: Hypertension - Social History Lives: With Family Alcohol Use: None Substance Use Type: Marijuana Substance Use Comment - Amount & Last Used: daily Smoking Status (MU): Smoker, Current Status Unknown Type: Cigarettes Review of Systems All Other Systems Reviewed And Are Negative: No Constitutional: Positive: Negative Skin: Positive: Negative ENT: Positive: Dental Pain Respiratory: Positive: Negative Cardiovascular: Positive: Negative Neurological: Positive: Negative Psychological: Positive: Negative Physical Exam - Summary Physical Exam Summary: GENERAL: NAD. WDWN. No pain distress. SKIN: No rashes, sores, lesions, or open wounds. HEENT: Throat: Posterior oropharynx without exudates, erythema, or tonsillar enlargement. Uvula midline. NECK: Supple. Nontender. CHEST: CTAB. No accessory muscle use. Breathing comfortably and in no distress. CV: RRR. Pulses intact. Cap refill <2seconds NEURO: Alert. PSYCH: Age appropriate behavior. Triage Information Reviewed: Yes Vital Signs: Vital Signs: Temp Pulse Resp BP Pulse Ox 98.8 F 77 18 141/84 97 11/15/19 18:29 02/22/19 18:29 02/22/19 18:29 02/22/19 18:29 02/22/19 18:29 Vital Signs Reviewed: Yes Dental: Positive: Gross Decay/Caries @ - throughout, Other: - Clotted blood with scant bleeding at extraction sites teeth #2, 3, and 30 Dental Complaint Course/Dx - Course Course Of Treatment: At the extraction sites there are dark red blood clots with scant bleeding after removal of the gauze. I suspect he needs to leave the gauze in longer as he continues to remove the clots when removing the gauze. In the clinic, telfa was applied to the sites and ice pack provided. Advised to leave gauze in place for >1hour and wet before removing for the evening. No chewing or drinking from straws for 48 hours - Differential Dx/Diagnosis Provider Diagnosis: Gums, bleeding Discharge ED - Sign-Out/Discharge Documenting (check all that apply): Patient Departure All imaging exams completed and their final reports reviewed: No Studies - Discharge Plan Condition: Stable Disposition: HOME Referrals: No Primary Care Phys,NOPCP [Primary Care Provider] - Additional Instructions: Keep the gauze on the site for 2 hours without removing and wet the gauze before removing from your mouth. They areas appear clotted at this time - Billing Disposition and Condition Condition: STABLE Disposition: Home
[2019-02-22 18:30] VITALS: BP 141/84
== END 2019-02-22 19:02 | disposition home or self-care (01) ==
LOC: UCEAST 18:07
DX: K06.8 Other specified disorders of gingiva and edentulous alveolar ridge (principal); F17.210 Nicotine dependence, cigarettes, uncomplicated; G20 Parkinson's disease; Z98.890 Other specified postprocedural states
CPT/HCPCS: 99211; G0463

== ENCOUNTER 2019-04-17 09:53 | Emergency (ER) | payer MEDICARE ==
--- OUTSIDE RECORDS SUMMARY | 2019-04-17 10:36 | XMS REPORT | Continuity of Care Document ---
:1970 External Reference #:[id number] Author Name Perfecto Bowser M.D. 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 Onset: 2018 lumbar intervertebral disc Constipation Perfecto Bowser M.D. Onset: 04/05/2019 Skin sensation disturbance Perfecto Bowser M.D. Onset: 04/05/2019 Lumbar spondylosis Perfecto Bowser M.D. Onset: 02/04/2019 Social History Type Date Description Comments Sex Unknown ETOH Use Rarely consumes alcohol Tobacco Use Start: Unknown Patient is a current smoker, smokes every day Recreational Drug Use Denies Drug Use Tobacco Use Start: Unknown Light tobacco smoker (10 or fewer cigarettes/day) Smoking Status Reviewed: 04/05/19 Light tobacco smoker (10 or fewer cigarettes/day) Exercise Type/Frequency Exercises regularly Allergies, Adverse Reactions, Alerts Description No Known Drug Allergies Medications Active Medications SIG Qnty Indications Ordering Provider Date Miralax 1 capful per day 1bottle K59.00 Andresisaac Niels, 04/05/2019 Powder (17g) dissolved M.D. in 4-8 oz of liquid; Carbidopa-Levodopa take 1 pill 5 450tabs G20 Perfecto Niels, 02/04/2019 times a day M.D. 25-100mg Tablets Hydrocodone 1 every 8 hours 90tabs Vijay Miranda, 12/17/2018 Bitartrate/Acetamin as needed for N.P. ophen pain 7.5-325mg Tablets Gabapentin 1-2 caps by mouth 30caps Andresisaac Niels, 11/05/2018 300mg at bedtime M.D. Capsules Clonazepam take one pill 60tabs F41.1 Vijay [place], 01/04/2018 1mg every 12 hours, N.P. Tablets Carbidopa-Levodopa take 1 pill 4-5 360tabs Z96.89 Vijay [place], 2017 ER times a day. N.P. 50-200mg Tablets ER History Medications Hydrocodone Take 1 by 90tabs Khurrambernardino Niels, 12/17/2018 - Bitartrate/Acetaminophen mouth 3 M.D. 12/16/2018 7.5-325mg Tablets times a day for pain Immunizations Description No Information Available Vital Signs Date Vital Result Comment 04/05/2019 3:06pm Height 71 inches 5'11" Weight 168.00 lb Heart Rate 92 /min BP Systolic 132 mmHg BP Diastolic 80 mmHg BMI (Body Mass Index) 23.4 kg/m2 02/07/2019 10:02am Height 71 inches 5'11" Weight 168.00 lb Heart Rate 78 /min BP Systolic Sitting 98 mmHg BP Diastolic Sitting 60 mmHg BMI (Body Mass Index) 23.4 kg/m2 Results Test Acquired Date Facility Test Result H/L Range Note Inr/Protime 01/21/2019 [facility] Inr 0.94 Normal 0.82-1.[address] [place] [address] [phone] Laboratory test 01/21/2019 [facility] Partial 39.2 High 26.0- 38.[address] [address] PTT [phone] Platelet Count 01/21/2019 [facility] Platelet 192 10^3/uL Normal 150-[address] [place] [address] [phone] Mean Platelet Volume 8.1 fL Normal 7.4-10.4 1 Standard intensity warfarin therapeutic range: 2.0-3.0 High intensity warfarin therapeutic range: 2.5-3.5 Procedures Date Code Description Status 11/05/2018 59434 Neurostimulator Pulse Generator Analysis W/O Reprogramming Completed Medical Devices Description No Information Available Encounters Type Date Location Provider Dx Diagnosis Office Visit 02/07/2019 [facility] SAUD Echevarria M47.816 Spondylosis w/o 10:00a [facility] myelopathy or radiculopathy, lumbar region Office Visit 02/04/2019 [facility] Perfecto Bowser G2Noreen Parkinson' s 12:15p [facility] Delacruz disease M47.816 Spondylosis w/o myelopathy or radiculopathy, lumbar region F41.9 Anxiety disorder, unspecified M54.5 Low back pain Office Visit 01/22/2019 8:35a [facility] Socorro G20 Parkinson's Assoc,ramakrishna Quinones D.O. disease Hospitalists Office Visit 01/21/2019 8:35a [facility] Shantel R20.2 Paresthesia of Assoc,ramakrishna Nava MD skin Hospitalists M54.9 Dorsalgia, unspecified Office 12/26/2018 [facility] Mitch Orr M47.816 Spondylosis w/o Visit 1:30p [facility] myelopathy or radiculopathy, lumbar region Office 11/05/2018 [facility] Perfecto G2Noreen Parkinson's Visit 8:45a [facility] Bowser M.D. disease F41.9 Anxiety disorder, unspecified M54.5 Low back pain M51.17 Intvrt disc disorders w radiculopathy, lumbosacral region Z45.42 Encounter for adjustment and management of neurostimulator Assessments Date Code Description Provider 04/05/2019 G20 Parkinson's disease Perfecto Bowser M.D. 04/05/2019 M47.816 Lumbar spondylosis Perfecto Bowser M.D. 04/05/2019 F41.9 Anxiety disorder, unspecified Perfecto Bowser M.D. 04/05/2019 M54.5 Low back pain Perfecto Bowser M.D. 04/05/2019 R20.2 Paresthesia of skin Perfecto Bowser M.D. 04/05/2019 K59.00 Constipation, unspecified Perfecto Bowser M.D. 02/07/2019 M47.816 Lumbar spondylosis SAUD Echevarria 02/04/2019 G20 Parkinson's disease Perfecto Bowser M.D. 02/04/2019 M47.816 Lumbar spondylosis Perfecto Bowser M.D. 02/04/2019 F41.9 Anxiety disorder, unspecified Perfecto Bowser M.D. 02/04/2019 M54.5 Low back pain Perfecto Bowser M.D. 01/22/2019 G20 Parkinson's disease Socorro Quinones D.O. 01/21/2019 R20.2 Paresthesia of skin Shantel Nava MD 01/21/2019 M54.9 Dorsalgia, ana Nava MD 12/26/2018 M47.816 Lumbar spondylosis SAUD Echevarria 11/05/2018 G20 Parkinson's disease Perfecto Bowser M.D. 11/05/2018 F41.9 Anxiety disorder, unspecified Perfecto Bowser M.D. 11/05/2018 M54.5 Low back pain Perfecto Bowser M.D. 11/05/2018 M51.17 Intervertebral disc disorders with Perfecto Bowser M.D. radiculopathy, lumbosacra 11/05/2018 Z45.42 Encounter for adjust and mgmt of Perfecto Bowser M.D. neuropacemaker (brain) Plan of Treatment Future Appointment(s):08/12/2019 8:15 am - Perfecto Bowser M.D. at [place] [facility]07/03/2019 11:00 am - Casimiro Manzano MD at [facility]04/05/2019 - Perfecto Bowser M.D.G20 Parkinson's diseaseFollow up:Follow up in 3 zjcriV15.816 Lumbar keakrifpboyE33.9 Anxiety disorder, cwvtblwisdlC86.5 Low back painReferral:Javid Burnett MD, Physical Medicine/WjvfrR95.2 Paresthesia of skinK59.00 Constipation, unspecifiedNew Medication:Miralax - 1 capful per day (17g) dissolved in 4-8 oz of liquid; Functional Status Description No Information Available Mental Status Description No Information Available Referrals Refer to Dr Reason for Referral Status Appt Date Javid Burnett MD Created [address] [place] [address] [phone] Yulia Cornejo MD 48 y/o male with chronic axial low back pain. Created [address] [place] [address] [phone]
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
[2019-04-17] MEDS ORDERED: Carbidopa/Levodop 25/100 MG TAB(*) PO ONE (12:14)
[2019-04-17] MEDS ORDERED: Ondansetron ODT TAB* 4 MG SL ONE (12:14)
[2019-04-17] MEDS ORDERED: CARBIDOPA PO ONE (12:15)
[2019-04-17] MEDS ORDERED: LEVODOP PO ONE (12:15)
[2019-04-17] MEDS ORDERED: Carbidopa/Levodop CR 50/200(*) TAB.CR PO ONE (13:00)
[2019-04-17 13:41] VITALS: BP 126/78
== END 2019-04-17 13:39 | disposition home or self-care (01) ==
LOC: ED 09:53
DX: S29.012A Strain of muscle and tendon of back wall of thorax, initial encounter (principal); G20 Parkinson's disease; R51 Headache; V48.5XXA Car driver injured in noncollision transport accident in traffic accident, initial encounter; Y92.410 Unspecified street and highway as the place of occurrence of the external cause; F41.9 Anxiety disorder, unspecified; F32.9 Major depressive disorder, single episode, unspecified; F17.210 Nicotine dependence, cigarettes, uncomplicated; M50.30 Other cervical disc degeneration, unspecified cervical region
CPT/HCPCS: 70450; 72125; 99284; A9270-GY

== ENCOUNTER 2024-03-25 16:53 | Observation (INO) ==
[2024-03-25] MEDS: Lactated Ringers 1000 ml BAG 1,000 ML IV ONE (19:20)
[2024-03-25 19:27] LABS: ABS Basophils 0.1 10^3/uL (0.0-0.1); ABS Eosinophils 0.3 10^3/uL (0.0-0.5); ABS Lymphocytes 1.9 10^3/uL (1.0-4.8); ABS Monocytes 0.5 10^3/uL (0.0-1.1); ABS Neutrophils 3.9 10^3/uL (1.5-7.6); ABS Nucleated RBC 0.01 10^3/ul; Eosinophil % 5.2 %; Hematocrit 46.8 % (38-53); Hemoglobin 16.2 g/dL (13.2-16.3); Mean Corpuscular Hemoglobin 32.9 pg (27-33); Mean Corpuscular Hgb Conc 34.6 g/dL (31-36); Mean Corpuscular Volume 95.2 fL (80-97); Nucleated Red Blood Cells % 0.1 %/100WBC (0.0-0.8); Platelet Count 260 10^3/uL (150-450); Red Blood Count 4.92 10^6/uL (4.06-5.63); Red Cell Distribution Width 13.8 % (12-17); White Blood Count 6.8 10^3/uL (3.6-10.2)
[2024-03-25] MEDS: Carbidopa/Levodop CR 50/200 TAB.CR PO ONE (19:57)
[2024-03-25 20:28] LABS: ALT 3 U/L (7-52); AST 15 U/L (13-39); Albumin 4.4 g/dL (3.2-5.2); Albumin/Globulin Ratio 1.6 (1-3); Alkaline Phosphatase 138 U/L (35-149); Anion Gap 7 mmol/L (2-16); Blood Urea Nitrogen 7 mg/dL (6-24); C Reactive Protein < 1.00 mg/L (<8.01); CO2 Carbon Dioxide 28 mmol/L (22-32); Calcium 9.8 mg/dL (8.6-10.3); Chloride 104 mmol/L (101-111); Creatinine, Serum 0.78 mg/dL (0.67-1.17); Globulin 2.8 g/dL (2-4); Glucose 97 mg/dL (70-100); Potassium 4.2 mmol/L (3.5-5.0); Sodium 139 mmol/L (135-145); Total Bilirubin 0.5 mg/dL (0.2-1.0); Total Protein 7.2 g/dL (6.4-8.9)
[2024-03-25] MEDS ORDERED: Carbidopa/Levodop CR 50/200 TAB.CR PO SCH (21:00)
[2024-03-25] MEDS: Carbidopa/Levodop 25/100 MG TAB PO ONE (21:14)
[2024-03-25] MEDS: Carbidopa/Levodop 25/100 MG TAB PO SCH (23:47)
[2024-03-25] MEDS: Carbidopa/Levodop CR 50/200 TAB.CR PO SCH (23:48)
[2024-03-26] MEDS ORDERED: Al Hydrox/Mg Hydrox/Simet LIQ 30 ML UDC PO PRN (12:46)
[2024-03-26] MEDS ORDERED: Carbidopa/Levodop CR 50/200 TAB.CR PO SCH (14:00)
[2024-03-26] MEDS: Carbidopa/Levodop 25/100 MG TAB PO SCH (14:38)
[2024-03-26] MEDS: Carbidopa/Levodop CR 50/200 TAB.CR PO SCH (18:28)
[2024-03-28] MEDS: Carbidopa/Levodop CR 50/200 TAB.CR PO SCH (11:53)
[2024-03-28] MEDS ORDERED: Magnesium Hydroxide LIQ 30 ML UDC PO PRN (16:54)
[2024-03-28] MEDS: Polyethylene Glycol 3350 17 GM PACKET PO PRN (17:57)
[2024-03-28] MEDS: Senna TAB 8.6 mg TAB PO PRN (17:59)
[2024-03-29] MEDS: Carbidopa/Levodop CR 50/200 TAB.CR PO SCH (06:57)
[2024-03-29 14:21] VITALS: BP 111/80
== END 2024-03-29 14:40 ==
LOC: EDHOLD 16:53 → ED 16:53 → MED 03-26 15:09
PROVIDERS: ADMIT Internal Medicine; ATTEND Internal Medicine